=== PATIENT | male | born 1950 | race Caucasian/White ===

== ENCOUNTER 2016-07-10 15:02 | Emergency (ER) | payer MEDICARE ==
[2016-07-10] MEDS ORDERED: AMMONIA AROMATIC IH ONE (15:30)
[2016-07-10] MEDS ORDERED: Sodium Chloride 0.9% 1000 ML 1,000 ML IV SCH (15:30)
--- NOTE | 2016-07-10 15:31 | ERPHSYRPT ---
- History of Present Illness Time Seen by Provider: 07/10/16 15:26 Source: patient Exam Limitations: no limitations Patient Subjective Stated Complaint: bright red rectal bleeding. Triage Nursing Assessment: ambulated to room per self. skin w/d, color normal, resp easy. no active bleeding noted at this time. Physician History: This is a 65-year-old white male he arrives with complaint of bright red blood from his rectum approximately an hour and a half ago he states that he's been having lower abdominal pain for several days she states she's been having progressively redder stools over the past couple days then today when he went to wipe he got gross blood. He does have pain in the lower abdomen he has no vomiting. Patient without chest pain or shortness of breath. Past medical history includes arrhythmia, coronary artery disease, hyperlipidemia, high blood pressure, myocardial infarction, diverticulitis, GERD , chronic low back pain, multiple rib fractures,. Past surgical history includes CABG, internal defibrillator, pacer, appendectomy , hemorrhoidectomy, defibrillator placement and removal.. . Timing/Duration: today, other (progressively redder stools for 2 days blood in stools today) Severity: moderate Modifying Factors: Worsens With: eating, immobilization, medication, movement, rest, acetaminophen, ibuprofen, nothing Associated Symptoms: abdominal pain (pain in the lower abdomen bilaterally), No nausea, No vomiting, No shortness of breath, No heartburn, No diaphoresis, No cough, No chills, No chest pain, No fever, No headaches, No loss of appetite, No malaise, No rash, No syncope, No seizure, No weakness Allergies/Adverse Reactions: codeine Adverse Reaction (Verified 07/10/16 15:16) "I DON'T LIKE IT"-VOMITED morphine Adverse Reaction (Verified 07/10/16 15:16) HIGH TOLERANCE Home Medications: Alprazolam 1 mg PO TID PRN PRN 12/24/14 [History] Famotidine 20 mg [Pepcid 20 MG] 20 mg PO BID 12/24/14 [History] Lisinopril 5 mg [Zestril 5 MG] 5 mg PO DAILY 12/24/14 [History] Tamsulosin HCl 0.4 mg PO DAILY 07/16/15 [History] Piroxicam [Feldene] 10 mg PO BID 09/20/15 [History] Apixaban [Eliquis] 5 mg PO BID 01/21/16 [History] Amiodarone HCl [Pacerone] 400 mg PO DAILY 07/10/16 [History] Hx Tetanus, Diphtheria Vaccination/Date Given: Yes Hx Influenza Vaccination/Date Given: Yes Hx Pneumococcal Vaccination/Date Given: Yes - Review of Systems Constitutional: No Fever, No Chills Eyes: No Symptoms, No Discharge, No Eye Pain Ears, Nose, & Throat: No Symptoms, No Ear Pain, No Ear Discharge, No Hearing Changes Respiratory: No Cough, No Dyspnea Cardiac: No Chest Pain, No Edema, No Syncope Abdominal/Gastrointestinal: Abdominal Pain, Hematochezia, No Nausea, No Vomiting , No Diarrhea Genitourinary Symptoms: No Dysuria Musculoskeletal: No Back Pain, No Neck Pain Skin: No Rash Neurological: No Dizziness, No Focal Weakness, No Sensory Changes Psychological: No Symptoms Endocrine: No Symptoms All Other Systems: Reviewed and Negative - Past Medical History Pertinent Past Medical History: Yes Neurological History: No Pertinent History ENT History: No Pertinent History Cardiac History: Arrhythmia, Coronary Artery Disease, High Cholesterol, Hypertension, Myocardial Infarction ([place]), Other Respiratory History: No Pertinent History, Other Endocrine Medical History: No Pertinent History Musculoskeletal History: Other GI Medical History: Diverticulitis, GERD History: No Pertinent History Psycho-Social History: No Pertinent History Male Reproductive Disorders: No Pertinent History Other Medical History: CHRONIC LOWER BACK PAIN. BROKEN NOSE. fx ribs on TEJ SIDES - Past Surgical History Past Surgical History: Yes Neuro Surgical History: No Pertinent History Cardiac: CABG, Internal Defibrillator, Pacemaker, Other Respiratory: No Pertinent History Gastrointestinal: Appendectomy, Hemorrhoidectomy Genitourinary: No Pertinent History Musculoskeletal: No Pertinent History Male Surgical History: No Pertinent History Other Surgical History: defib placement and removal - Social History Smoking Status: Current every day smoker How long have you smoked: 55 Exposure to second hand smoke: No Drug Use: none Patient Lives Alone: No - Nursing Vital Signs Nursing Vital Signs: Initial Vital Signs Temperature 97.7 F Pulse Rate 82 Respiratory Rate 18 Blood Pressure [Right Arm] 135/78 Pain Intensity 6 - Physical Exam General Appearance: mild distress Eye Exam: PERRL/EOMI, eyes nml inspection Ears, Nose, Throat Exam: normal ENT inspection, TMs normal, pharynx normal, moist mucous membranes Neck Exam: normal inspection, non-tender, supple, full range of motion Respiratory Exam: normal breath sounds, lungs clear, No respiratory distress Cardiovascular Exam: regular rate/rhythm, normal heart sounds, normal peripheral pulses Gastrointestinal/Abdomen Exam: soft, normal bowel sounds, tenderness ( suprapubic tenderness), No pulsatile mass, No rebound Rectal Exam: normal rectal tone, other (gross hematocherzia on rectal examination) Back Exam: normal inspection, normal range of motion, No CVA tenderness, No vertebral tenderness Extremity Exam: normal inspection, normal range of motion, pelvis stable Neurologic Exam: alert, oriented x 3, cooperative, normal mood/affect, nml cerebellar function, nml station & gait, sensation nml, No motor deficits Skin Exam: normal color, warm, dry, No rash Lymphatic Exam: No adenopathy SpO2 Interpretation: normal (99%) SpO2: 99 - Course Nursing assessment & vital signs reviewed: Yes Ordered Tests: Active Orders 24 hr Category Date Time Status IV Insertion STAT Care 07/10/16 15:25 Active IV Insertion-2nd Peripheral STAT Care 07/10/16 15:25 Active CBC W DIFF Stat Lab 07/10/16 15:34 Completed CMP Stat Lab 07/10/16 15:34 Completed Manual Differential NC Stat Lab 07/10/16 15:34 Completed Occult Blood,Stool Other Stat Lab 07/10/16 15:34 Completed PROTIME WITH INR Stat Lab 07/10/16 15:34 Completed PTT Stat Lab 07/10/16 15:34 Completed Medication Summary Generic Name Dose Route Start Last Admin Trade Name Freq PRN Reason Stop Dose Admin Sodium Chloride 1,000 mls @ 100 mls/hr 07/10/16 15:30 07/10/16 15:36 Sodium Chloride 0.9% 1000 Ml IV 08/09/16 15:29 100 mls/hr .Q10H BELL Administration Levofloxacin/Dextrose 100 mls @ 100 mls/hr 07/10/16 16:52 07/10/16 17:13 Levofloxacin 500mg/100ml D5w IV 07/10/16 17:51 100 mls/hr STAT ONE Administration Discontinued Medications Generic Name Dose Route Start Last Admin Trade Name Freq PRN Reason Stop Dose Admin Ammonia (Aromatic Spirit) Confirm 07/10/16 15:30 Ammonia Aromatic Administered 07/10/16 15:31 Dose 1 amp IH .STK-MED ONE Sodium Chloride Confirm 07/10/16 15:34 Sodium Chloride 0.9% 1000 Ml Administered 07/10/16 15:35 Dose 1,000 mls @ ud .ROUTE .STK-MED ONE Levofloxacin/Dextrose Confirm 07/10/16 17:10 Levofloxacin 500mg/100ml D5w Administered 07/10/16 17:11 Dose 100 mls @ ud IV .STK-MED ONE Morphine Sulfate 8 mg 07/10/16 16:55 07/10/16 17:12 Morphine Sulfate 10 Mg/Ml IV 07/10/16 16:56 8 mg STAT ONE Administration Morphine Sulfate Confirm 07/10/16 17:10 Morphine Sulfate 10 Mg/Ml Administered 07/10/16 17:11 Dose 10 mg .ROUTE .STK-MED ONE Lab/Rad Data: Laboratory Result Diagrams 07/10/16 15:34 07/10/16 15:34 Laboratory Results 07/10/16 07/10/16 07/10/16 Range/Units 15:34 15:34 15:34 WBC (4.0-10.5) K/mm3 RBC (4.1-5.6) M/mm3 Hgb (12.5-18.0) gm/dl Hct (42-50) % MCV (78-100) fl MCH (26-32) pg MCHC (32-36) g/dl RDW (11.5-14.0) % Plt Count (150-450) K/mm3 MPV (6-9.5) fl Segmented Neutrophils (36.-66.) % Lymphocytes (Manual) (24-44) % Monocytes (Manual) (0.0-12.0) % Eosinophils (Manual) (0.00-3.0) % Differential Comment Platelet Estimate (NORMAL) INR 1.18 (0.8-3.0) PTT 38.5 H (24.1-36.1) SECONDS Sodium (136-145) mEq/L Potassium (3.5-5.1) mEq/L Chloride (98-107) mEq/L Carbon Dioxide (21-32) mEq/L Anion Gap (5-15) MEQ/L BUN (9-20) mg/dL Creatinine (0.55-1.30) mg/dl Estimated GFR ML/MIN Glucose (70-110) MG/DL Calcium (8.5-10.1) mg/dL Total Bilirubin (0.2-1.0) mg/dL AST (15-37) U/L ALT (12-78) U/L Alkaline Phosphatase (46-116) U/L Serum Total Protein (6.4-8.2) gm/dL Albumin (3.4-5.0) g/dL Stool Occult Blood POSITIVE (Negative) ABO Group A Rh Factor POSITIVE Antibody Screen NEGATIVE (NEGATIVE) 07/10/16 07/10/16 Range/Units 15:34 15:34 WBC 13.8 H (4.0-10.5) K/mm3 RBC 5.32 (4.1-5.6) M/mm3 Hgb 14.9 (12.5-18.0) gm/dl Hct 45.9 (42-50) % MCV 86.3 (78-100) fl MCH 28.0 (26-32) pg MCHC 32.5 (32-36) g/dl RDW 17.2 H (11.5-14.0) % Plt Count 216 (150-450) K/mm3 MPV 10.1 H (6-9.5) fl Segmented Neutrophils 44 (36.-66.) % Lymphocytes (Manual) 45 H (24-44) % Monocytes (Manual) 9 (0.0-12.0) % Eosinophils (Manual) 2 (0.00-3.0) % Differential Comment NORMAL Platelet Estimate NORMAL (NORMAL) INR (0.8-3.0) PTT (24.1-36.1) SECONDS Sodium 135 L (136-145) mEq/L Potassium 4.1 (3.5-5.1) mEq/L Chloride 100 (98-107) mEq/L Carbon Dioxide 23.0 (21-32) mEq/L Anion Gap 16.2 H (5-15) MEQ/L BUN 21 H (9-20) mg/dL Creatinine 1.08 (0.55-1.30) mg/dl Estimated GFR > 60 ML/MIN Glucose 98 (70-110) MG/DL Calcium 9.0 (8.5-10.1) mg/dL Total Bilirubin 0.5 (0.2-1.0) mg/dL AST 22 (15-37) U/L ALT 19 (12-78) U/L Alkaline Phosphatase 52 (46-116) U/L Serum Total Protein 7.4 (6.4-8.2) gm/dL Albumin 3.7 (3.4-5.0) g/dL Stool Occult Blood (Negative) ABO Group Rh Factor Antibody Screen (NEGATIVE) - Progress Progress: improved Progress Note: 07/10/16 16:54 Patient's hemoglobin is stable he does have a mild increased white count. Case is discussed with Dr. Goddard. He requests that the patient be placed on antibioticsn, and that he has a repeat CBC in the morning as an outpatient which is to be called to Dr. Goddard. Dr. Goddard does not want to admit this patient at this time. He would like to see the patient on Tuesday. Patient is asking for a pain shot. Patient has morphine listed as an allergy however the patient states that he is not allergic to morphine or codeine he doesn't feel like it doesn't whole lot but he is not allergic to it and he has never had an allergic reaction to it. Will give patient morphine IV will give patient Levaquin IV Will plan to release patient as requested by Dr. Goddard 07/10/16 17:00 Had considered sending patient home on Levaquin however Will place patient on Augmentin 500 mg orally 3 times a day for 10 days. - Departure Time of Disposition: 17:27 Departure Disposition: Home Clinical Impression: Rectal bleeding Abdominal pain Qualifiers: Abdominal location: lower abdomen, unspecified Qualified Code(s): R10.30 - Lower abdominal pain, unspecified Diverticulitis Qualifiers: Diverticulitis site: unspecified part of intestinal tract Diverticulitis bleeding: with bleeding Diverticulitis complication: without perforation or abscess Qualified Code(s): K57.93 - Diverticulitis of intestine, part unspecified, without perforation or abscess with bleeding Condition: Fair Critical Care Time: No Referrals: SHIMON GODDARD MD [Primary Care Provider] - Additional Instructions: Return home. Clear fluids. [id number] mg orally 3 times a day for 10 days CBC tomorrow morning results to Dr. Goddard. Follow-up with Dr. Goddard Tuesday. Return for acute distress or for severe symptoms. Prescriptions: Amox Tr/Potass Clav. 500 mg [Augmentin 500-125 Tablet] 500 mg PO TID #0 tablet
[2016-07-10] MEDS ORDERED: Sodium Chloride 0.9% 1000 ML 1,000 ML ONE (15:34)
[2016-07-10 15:59] LABS: Mean Cell Volume 86.3 fl (78-100); Mean Platelet Volume 10.1 fl (6-9.5); Platelet Count 216 K/mm3 (150-450); Red Blood Count 5.32 M/mm3 (4.1-5.6); Red Cell Distribution Width 17.2 % (11.5-14.0); White Blood Count 13.8 K/mm3 (4.0-10.5)
[2016-07-10 16:09] LABS: ALBUMIN 3.7 g/dL (3.4-5.0); ALKALINE PHOSPHATASE 52 U/L (46-116); ANION GAP 16.2 MEQ/L (5-15); BILIRUBIN,TOTAL 0.5 mg/dL (0.2-1.0); BLOOD UREA NITROGEN 21 mg/dL (9-20); CHLORIDE 100 mEq/L (98-107); Glucose 98 MG/DL (70-110); Potassium 4.1 mEq/L (3.5-5.1); SGOT/AST 22 U/L (15-37); SGPT/ALT 19 U/L (12-78); SODIUM 135 mEq/L (136-145); Total Protein 7.4 gm/dL (6.4-8.2)
[2016-07-10 16:11] LABS: INR 1.18 (0.8-3.0); PROTIME 13.1 SECONDS (8.83-12.87)
[2016-07-10 16:14] LABS: PTT 38.5 SECONDS (24.1-36.1)
[2016-07-10 16:28] LABS: Eosinophil 2 % (0.00-3.0); Platelet Estimate NORMAL (NORMAL); Total Cells Counted 100
[2016-07-10] MEDS ORDERED: Levofloxacin 500MG/100ML D5W 100 ML IV ONE ×2 (16:52→17:10)
[2016-07-10] MEDS ORDERED: MORPHINE SULFATE 10 MG/ML IV ONE (16:55)
[2016-07-10] MEDS ORDERED: MORPHINE SULFATE 10 MG/ML ONE (17:10)
[2016-07-10 18:19] VITALS: BP 138/78; PULSE 78; O2SAT 98
== END 2016-07-10 18:30 | disposition home or self-care (01) ==
LOC: ED 15:02
DX: R10.30 Lower abdominal pain, unspecified (principal); K57.93 Diverticulitis of intestine, part unspecified, without perforation or abscess with bleeding; K62.5 Hemorrhage of anus and rectum; I10 Essential (primary) hypertension; E78.5 Hyperlipidemia, unspecified; I25.10 Atherosclerotic heart disease of native coronary artery without angina pectoris; I25.2 Old myocardial infarction; Z95.1 Presence of aortocoronary bypass graft; Z95.810 Presence of automatic (implantable) cardiac defibrillator; Z95.0 Presence of cardiac pacemaker; Z79.899 Other long term (current) drug therapy
CPT/HCPCS: 36000; 36415; 80053; 82272; 85025; 85610; 85730; 86850; 86900; 86901; 96360; 96361; 96365; 96374; 99283; 99284; J1956; J2270

== ENCOUNTER 2016-08-30 12:29 | Emergency (ER) | payer MEDICARE ==
--- NOTE | 2016-08-30 12:46 | ERPHSYRPT ---
- History of Present Illness Time Seen by Provider: 08/30/16 12:40 Source: patient Exam Limitations: no limitations Patient Subjective Stated Complaint: pt arrived per pov for pacemaker/defib making a loud noise, called and told to come in. happened about an hour ago. had pacemaker/defib tested this morning and states it was fine, pt states he does not feel well, pain to left jaw and nausea Triage Nursing Assessment: pt alert, resp easy,skin w/d,pink, resp easy, pt walked in to er, no edema noted, chest clear, pt has pacemaker/defib in right side of chest. Physician History: The patient is a 65-year-old male who has a cardiac pacemaker/defibrillator comes in complaining that about one hour ago there was a loud siren type noise the last 15 seconds coming from his defibrillator. Pacer placed 09/20/14. He called the child specialist and was told to come to the ER. He says he doesn't feel well but denies chest pain. He has pain in his left jaw. He said his stomach doesn't feel well. He is not short of breath. Earlier this morning he interrogated his defibrillator as usual and everything was fine. His past medical history is significant for [place], hypertension, coronary artery disease, CABG, and diverticulitis. Timing/Duration: hour(s) (1) Activities at Onset: none Quality: other (alarm from defib) Chest Pain Radiation: jaw Severity of Pain-Max: moderate Severity of Pain-Current: moderate Modifying Factors: Improves With: nothing Nitro Today/Relief: no nitro taken today Aspirin Treatment Today: no aspirin today Associated Symptoms: nausea Prior Chest Pain/Cardiac Workup: cardiac cath Allergies/Adverse Reactions: codeine Adverse Reaction (Verified 08/30/16 12:39) "I DON'T LIKE IT"-VOMITED morphine Adverse Reaction (Verified 08/30/16 12:39) HIGH TOLERANCE Home Medications: Alprazolam 1 mg PO TID PRN PRN 12/24/14 [History] Famotidine 20 mg [Pepcid 20 MG] 20 mg PO BID 12/24/14 [History] Lisinopril 5 mg [Zestril 5 MG] 5 mg PO DAILY 12/24/14 [History] Tamsulosin HCl 0.4 mg PO DAILY 07/16/15 [History] Piroxicam [Feldene] 10 mg PO BID 09/20/15 [History] Apixaban [Eliquis] 5 mg PO BID 01/21/16 [History] Amiodarone HCl [Pacerone] 400 mg PO DAILY 07/10/16 [History] Hx Tetanus, Diphtheria Vaccination/Date Given: Yes Hx Influenza Vaccination/Date Given: Yes Hx Pneumococcal Vaccination/Date Given: Yes - Review of Systems Constitutional: No Fever, No Chills Eyes: No Symptoms Ears, Nose, & Throat: No Symptoms Respiratory: No Cough, No Dyspnea Cardiac: Other (alarm from defib) Abdominal/Gastrointestinal: Nausea Genitourinary Symptoms: No Dysuria Musculoskeletal: No Symptoms Skin: No Rash Neurological: No Dizziness, No Focal Weakness, No Sensory Changes Psychological: No Symptoms Endocrine: No Symptoms Hematologic/Lymphatic: No Symptoms Immunological/Allergic: No Symptoms All Other Systems: Reviewed and Negative - Past Medical History Pertinent Past Medical History: Yes Neurological History: No Pertinent History ENT History: No Pertinent History Cardiac History: Arrhythmia, Coronary Artery Disease, High Cholesterol, Hypertension, Myocardial Infarction ([place]), Other Respiratory History: No Pertinent History, Other Endocrine Medical History: No Pertinent History Musculoskeletal History: Other GI Medical History: Diverticulitis, GERD History: No Pertinent History Psycho-Social History: No Pertinent History Male Reproductive Disorders: No Pertinent History Other Medical History: CHRONIC LOWER BACK PAIN. BROKEN NOSE. fx ribs on TEJ SIDES - Past Surgical History Past Surgical History: Yes Neuro Surgical History: No Pertinent History Cardiac: CABG, Internal Defibrillator, Pacemaker, Other Respiratory: No Pertinent History Gastrointestinal: Appendectomy, Hemorrhoidectomy Genitourinary: No Pertinent History Musculoskeletal: No Pertinent History Male Surgical History: No Pertinent History Other Surgical History: defib placement and removal - Social History Smoking Status: Current every day smoker How long have you smoked: 55 Exposure to second hand smoke: Yes Drug Use: none Patient Lives Alone: No - Nursing Vital Signs Temperature: 97.4 F Temperature Source: Oral Pulse Rate: 79 Respiratory Rate: 18 Pain Intensity: 5 - Physical Exam General Appearance: no apparent distress, alert Eye Exam: PERRL/EOMI, eyes nml inspection Ears, Nose, Throat Exam: normal ENT inspection, moist mucous membranes Neck Exam: normal inspection, non-tender, supple Respiratory Exam: normal breath sounds, lungs clear, No respiratory distress Cardiovascular Exam: regular rate/rhythm, normal heart sounds, No edema Gastrointestinal/Abdomen Exam: soft, No tenderness, No mass Rectal Exam: not done Back Exam: normal inspection, No CVA tenderness, No vertebral tenderness Extremity Exam: normal inspection, normal range of motion Neurologic Exam: alert, oriented x 3, cooperative, normal mood/affect, nml cerebellar function, sensation nml, No motor deficits Skin Exam: normal color, warm, dry Lymphatic Exam: No adenopathy SpO2 Interpretation: normal SpO2: 96 Oxygen Delivery: Room Air - Course EKG Interpreted by Me: RATE, Other (paced rhythm, no change compared to EKG 11/10.) - Radiology Exams Chest X-ray Interpretation: Teleradiologist Report, Negative (per Dr Short) Ordered Tests: Active Orders 24 hr Category Date Time Status EKG-ER Only STAT Care 08/30/16 12:55 Active IV Insertion STAT Care 08/30/16 12:55 Active CHEST 2 VIEWS (PA AND LAT) Stat Exams 08/30/16 12:56 Completed CBC W DIFF Stat Lab 08/30/16 13:00 Received CMP Stat Lab 08/30/16 13:00 Completed TROPONIN Stat Lab 08/30/16 13:00 Completed Lab/Rad Data: Laboratory Result Diagrams 08/30/16 13:00 Laboratory Results 08/30/16 Range/Units 13:00 Sodium 137 (136-145) mEq/L Potassium 4.4 (3.5-5.1) mEq/L Chloride 102 (98-107) mEq/L Carbon Dioxide 22.6 (21-32) mEq/L Anion Gap 16.4 H (5-15) MEQ/L BUN 21 H (9-20) mg/dL Creatinine 1.16 (0.55-1.30) mg/dl Estimated GFR > 60 ML/MIN Glucose 117 H (70-110) MG/DL Calcium 8.6 (8.5-10.1) mg/dL Total Bilirubin 0.5 (0.2-1.0) mg/dL AST 27 (15-37) U/L ALT 26 (12-78) U/L Alkaline Phosphatase 55 (46-116) U/L Troponin I 0.021 (0.000-0.056) ng/ml Serum Total Protein 7.5 (6.4-8.2) gm/dL Albumin 3.5 (3.4-5.0) g/dL - Progress Air Movement: good Progress Note: 08/30/16 13:56 We contacted [employer] concerning the pacemaker function. We were advised to hold a magnet over it and listened to the audible sound. The sound was a constant beep which is consistent with a functioning pacemaker. The company district representative also suggested that the pacemaker was interrogated accidentally by the patient when he was working in his garage by possibly getting close to a magnet. The company also sent us the information from the recent interrogation of the pacemaker. As of midnight on 08/30, there were 3 episodes of VT that were terminated with pacing and no shock. These episodes are on 08/26, 08/27, and . We were advised to contact the patient's bioinformatics associate to relay the information about the interrogation. 08/30/16 14:02 Blood Culture(s) Obtained: No Antibiotics given: No Counseled pt/family regarding: lab results, diagnosis, rad results - Departure Time of Disposition: 14:03 Departure Disposition: Home Clinical Impression: Cardiac pacemaker Condition: Stable Critical Care Time: No Additional Instructions: After consultation with the maker of your pacemaker, you're pacemaker is functioning normally at this time. Please follow-up with your bioinformatics associate to discuss the recent interrogation of the events recorded on your pacemaker.
[2016-08-30 13:28] LABS: ALBUMIN 3.5 g/dL (3.4-5.0); ALKALINE PHOSPHATASE 55 U/L (46-116); ANION GAP 16.4 MEQ/L (5-15); BILIRUBIN,TOTAL 0.5 mg/dL (0.2-1.0); BLOOD UREA NITROGEN 21 mg/dL (9-20); CHLORIDE 102 mEq/L (98-107); Carbon Dioxide 22.6 mEq/L (21-32); Glucose 117 MG/DL (70-110); Potassium 4.4 mEq/L (3.5-5.1); SGOT/AST 27 U/L (15-37); SGPT/ALT 26 U/L (12-78); SODIUM 137 mEq/L (136-145); TROPONIN 0.021 ng/ml (0.000-0.056); Total Protein 7.5 gm/dL (6.4-8.2)
--- NOTE | 2016-08-30 13:33 | XRAY ---
Indication: Pacemaker malfunction. Comparison: November 11, 2015. PA/lateral chest again hyperinflated and clear. Heart is not enlarged and again demonstrate previous CABG surgery with a right-sided pacemaker and leads. Bony thorax intact again with mild osteopenia and degenerative changes. Impression: Stable nonacute hyperinflated chest with chronic features.
[2016-08-30 13:40] LABS: Mean Corpuscular Hemoglobin 27.9 pg (26-32); Mean Platelet Volume 9.9 fl (6-9.5); Platelet Count 187 K/mm3 (150-450); Red Blood Count 5.23 M/mm3 (4.1-5.6); Red Cell Distribution Width 16.6 % (11.5-14.0); White Blood Count 13.3 K/mm3 (4.0-10.5)
[2016-08-30 14:21] VITALS: BP 137/74; PULSE 72; O2SAT 97
[2016-08-30 15:22] LABS: ATYPICAL LYMPHS 1 %; Eosinophil 2 % (0.00-3.0); Total Cells Counted 100
[2016-08-30 15:24] LABS: Platelet Estimate NORMAL (NORMAL)
[2016-08-30 15:29] LABS: ANISOCYTOSIS 1+
== END 2016-08-30 14:25 | disposition home or self-care (01) ==
LOC: ED 12:29
DX: T82.897A Other specified complication of cardiac prosthetic devices, implants and grafts, initial encounter (principal); R68.84 Jaw pain; R11.0 Nausea; I25.2 Old myocardial infarction; I25.10 Atherosclerotic heart disease of native coronary artery without angina pectoris; Z95.1 Presence of aortocoronary bypass graft; I10 Essential (primary) hypertension; K57.92 Diverticulitis of intestine, part unspecified, without perforation or abscess without bleeding; Z79.899 Other long term (current) drug therapy
CPT/HCPCS: 36000; 36415; 71020; 80053; 84484; 85025; 93005; 99284

== ENCOUNTER 2017-02-26 14:41 | Emergency (ER) | payer MEDICARE ==
[2017-02-26] MEDS ORDERED: BABY ASPIRIN 81 MG CHEW PO ONE (14:58)
[2017-02-26] MEDS ORDERED: Nitrostat 0.4 MG (ED) SL ONE ×2 (14:58→15:04)
[2017-02-26] MEDS ORDERED: Zofran 4 MG/2 ML VIAL IV ONE (14:58)
--- NOTE | 2017-02-26 14:58 | ERPHSYRPT ---
- History of Present Illness Time Seen by Provider: 02/26/17 14:52 Historian: patient Exam Limitations: no limitations Patient Subjective Stated Complaint: PT REPORTS HE WAS OUT PICKING APPLES-CAME INTO TOWN ET BEGAN HAVING SHARP CHEST PAIN WITH NUMBNESS TO LEFT HAND-REPORTS INCREASED [id number] N/V Triage Nursing Assessment: PT FLUSHED WARM ET DRY UPON ARRIVAL-PT SPEAKING IN COMPLETE SENTENCES-LUNGS DIMINISHED BILATERALLY-NO RETRACTIONS NOTED-RIGHT RADIAL PULSE REGULAR Physician History: The patient is a 66-year-old male complaining of a sudden onset of left-sided chest pressure with radiation down the left arm that began just prior to arrival. He had been out picking up apples but at the time was sitting down resting when the pain started. He is also slightly short of breath. He denies nausea or vomiting. He has a significant cardiac history which includes 3 vessel CABG, VT, coronary artery disease, and cardiac pacemaker placement. His other past medical history is significant for hypertension, diverticulitis, PE, and BPH. Timing/Duration: today, sudden Activities at Onset: rest Quality: pressure Location: substernal Chest Pain Radiation: arm Severity of Pain-Max: moderate Severity of Pain-Current: moderate Modifying Factors: Improves With: nothing Associated Symptoms: shortness of breath, No nausea, No vomiting, No dizziness Prior Chest Pain/Cardiac Workup: angina, cardiac cath, heart attack, pulmonary embolism Nitro Today/Relief: no nitro taken today Aspirin Treatment Today: no aspirin today Allergies/Adverse Reactions: codeine Adverse Reaction (Verified 02/26/17 14:49) "I DON'T LIKE IT"-VOMITED morphine Adverse Reaction (Verified 02/26/17 14:49) HIGH TOLERANCE Home Medications: Alprazolam 1 mg PO TID PRN PRN 12/24/14 [History] Famotidine 20 mg [Pepcid 20 MG] 20 mg PO BID 12/24/14 [History] Lisinopril 5 mg [Zestril 5 MG] 5 mg PO DAILY 12/24/14 [History] Tamsulosin HCl 0.4 mg PO DAILY 07/16/15 [History] Piroxicam [Feldene] 10 mg PO BID 09/20/15 [History] Apixaban [Eliquis] 5 mg PO BID 01/21/16 [History] Amiodarone HCl [Pacerone] 400 mg PO DAILY 07/10/16 [History] Hx Tetanus, Diphtheria Vaccination/Date Given: Yes Hx Influenza Vaccination/Date Given: Yes Hx Pneumococcal Vaccination/Date Given: Yes Immunizations Up to Date: Yes - Review of Systems Constitutional: No Fever, No Chills Eyes: No Symptoms Ears, Nose, & Throat: No Symptoms Respiratory: Dyspnea Cardiac: Chest Pain Abdominal/Gastrointestinal: No Abdominal Pain, No Nausea, No Vomiting, No Diarrhea Genitourinary Symptoms: No Dysuria Musculoskeletal: No Back Pain, No Neck Pain Skin: No Rash Neurological: No Dizziness, No Focal Weakness, No Sensory Changes Psychological: No Symptoms Endocrine: No Symptoms Hematologic/Lymphatic: No Symptoms Immunological/Allergic: No Symptoms All Other Systems: Reviewed and Negative - Past Medical History Pertinent Past Medical History: Yes Neurological History: No Pertinent History ENT History: No Pertinent History Cardiac History: Arrhythmia, Coronary Artery Disease, High Cholesterol, Hypertension, Myocardial Infarction (VT), Other Respiratory History: No Pertinent History, Other Endocrine Medical History: No Pertinent History Musculoskeletal History: Other GI Medical History: Diverticulitis, GERD History: No Pertinent History Psycho-Social History: No Pertinent History Male Reproductive Disorders: No Pertinent History Other Medical History: CHRONIC LOWER BACK PAIN. BROKEN NOSE. fx ribs on TEJ SIDES - Past Surgical History Past Surgical History: Yes Neuro Surgical History: No Pertinent History Cardiac: CABG, Internal Defibrillator, Pacemaker, Other Respiratory: No Pertinent History Gastrointestinal: Appendectomy, Hemorrhoidectomy Genitourinary: No Pertinent History Musculoskeletal: No Pertinent History Male Surgical History: No Pertinent History Other Surgical History: defib placement and removal - Social History Smoking Status: Current every day smoker How long have you smoked: 55 Exposure to second hand smoke: Yes Drug Use: none Patient Lives Alone: No - Nursing Vital Signs Nursing Vital Signs: Initial Vital Signs Pulse Rate 80 02/26/17 14:44 Respiratory Rate 20 02/26/17 14:44 Blood Pressure 122/70 02/26/17 14:44 O2 Sat by Pulse Oximetry 96 02/26/17 14:44 Pain Scale Pain Intensity 4 - Physical Exam General Appearance: mild distress Eye Exam: PERRL/EOMI, eyes nml inspection Ears, Nose, Throat Exam: normal ENT inspection, moist mucous membranes Neck Exam: normal inspection, non-tender, supple, full range of motion Respiratory Exam: wheezing Cardiovascular Exam: regular rate/rhythm, normal heart sounds Gastrointestinal/Abdomen Exam: soft, No tenderness, No mass Rectal Exam: not done Back Exam: normal inspection, No CVA tenderness, No vertebral tenderness Extremity Exam: normal inspection, normal range of motion Neurologic Exam: alert, oriented x 3, cooperative, normal mood/affect, sensation nml, No motor deficits Skin Exam: normal color, warm, dry SpO2 Interpretation: normal SpO2: 96 Oxygen Delivery: Room Air - Course EKG Interpreted by Me: RATE, Other (paced rhythm) - Radiology Exams Chest X-ray Interpretation: Interpreted by me, Other (increased pulmonary vascular congestion and cardiomegaly comp CXR 08/30/16.) Ordered Tests: Active Orders 24 hr Category Date Time Status Military Equipment Specialist STAT Care 02/26/17 14:56 Active EKG-ER Only STAT Care 02/26/17 14:56 Active IV Insertion STAT Care 02/26/17 14:55 Active Oxygen-ED Only NASAL CANNULA 2 lpm Care 02/26/17 14:58 Active Pulse Oximetry (ED) STAT Care 02/26/17 14:58 Active CHEST 2 VIEWS (PA AND LAT) Stat Exams 02/26/17 15:00 Taken CBC W DIFF Stat Lab 02/26/17 14:55 Completed CMP Stat Lab 02/26/17 14:55 Completed Manual Differential NC Stat Lab 02/26/17 14:55 Completed NT PRO BNP Stat Lab 02/26/17 14:55 Completed PROTIME WITH INR Stat Lab 02/26/17 14:55 Completed TROPONIN Q3H Lab 02/26/17 14:55 Completed TROPONIN Q3H Lab 02/26/17 18:00 Ordered TROPONIN Q3H Lab 02/26/17 21:00 Ordered TROPONIN Q3H Lab 02/27/17 00:00 Ordered TROPONIN Q3H Lab 02/27/17 03:00 Ordered Medication Summary Discontinued Medications Generic Name Dose Route Start Last Admin Trade Name Freq PRN Reason Stop Dose Admin Aspirin 324 mg 02/26/17 14:58 02/26/17 15:09 Baby Aspirin 81 Mg Chew PO 02/26/17 14:59 324 mg STAT ONE Administration Aspirin Confirm 02/26/17 15:04 Baby Aspirin 81 Mg Chew Administered 02/26/17 15:05 Dose 324 mg .ROUTE .STK-MED ONE Nitroglycerin 0.4 mg 02/26/17 14:58 02/26/17 15:05 Nitrostat 0.4 Mg (Ed) SL 02/26/17 14:59 0.4 mg STAT ONE Administration Nitroglycerin Confirm 02/26/17 15:04 Nitrostat 0.4 Mg (Ed) Administered 02/26/17 15:05 Dose 0.4 mg SL .STK-MED ONE Ondansetron HCl 4 mg 02/26/17 14:58 02/26/17 15:05 Zofran 4 Mg/2 Ml Vial IV 02/26/17 14:59 Not Given STAT ONE Ondansetron HCl Confirm 02/26/17 15:04 Zofran 4 Mg/2 Ml Vial Administered 02/26/17 15:05 Dose 4 mg .ROUTE .STK-MED ONE Lab/Rad Data: Laboratory Result Diagrams 02/26/17 14:55 02/26/17 14:55 Laboratory Results 02/26/17 02/26/17 02/26/17 Range/Units 14:55 14:55 14:55 WBC (4.0-10.5) K/mm3 RBC (4.1-5.6) M/mm3 Hgb (12.5-18.0) gm/dl Hct (42-50) % MCV (78-100) fl MCH (26-32) pg MCHC (32-36) g/dl RDW (11.5-14.0) % Plt Count (150-450) K/mm3 MPV (6-9.5) fl Segmented Neutrophils (36.-66.) % Lymphocytes (Manual) (24-44) % Monocytes (Manual) (0.0-12.0) % Eosinophils (Manual) (0.00-3.0) % Basophils (Manual) (0.0-1.0) % Nucleated RBCs % Differential Comment Platelet Estimate (NORMAL) INR 1.35 (0.8-3.0) Sodium 135 L (136-145) mEq/L Potassium 4.2 (3.5-5.1) mEq/L Chloride 101 (98-107) mEq/L Carbon Dioxide 24.2 (21-32) mEq/L Anion Gap 14.2 (5-15) MEQ/L BUN 17 (9-20) mg/dL Creatinine 1.12 (0.55-1.30) mg/dl Estimated GFR > 60 ML/MIN Glucose 148 H (70-110) MG/DL Calcium 8.6 (8.5-10.1) mg/dL Total Bilirubin 0.50 (0.2-1.0) mg/dL AST 21 (15-37) U/L ALT 23 (12-78) U/L Alkaline Phosphatase 54 (46-116) U/L Troponin I < 0.017 (0.000-0.056) ng/ml NT-Pro-B Natriuret Pep 1349 H (0-125) pg/ml Serum Total Protein 6.8 (6.4-8.2) gm/dL Albumin 3.3 L (3.4-5.0) g/dL 02/26/17 Range/Units 14:55 WBC 18.0 H (4.0-10.5) K/mm3 RBC 4.99 (4.1-5.6) M/mm3 Hgb 13.0 (12.5-18.0) gm/dl Hct 41.4 L (42-50) % MCV 83.0 (78-100) fl MCH 26.1 (26-32) pg MCHC 31.4 L (32-36) g/dl RDW 18.1 H (11.5-14.0) % Plt Count 194 (150-450) K/mm3 MPV 9.8 H (6-9.5) fl Segmented Neutrophils 33 L (36.-66.) % Lymphocytes (Manual) 57 H (24-44) % Monocytes (Manual) 6 (0.0-12.0) % Eosinophils (Manual) 3 (0.00-3.0) % Basophils (Manual) 1 (0.0-1.0) % Nucleated RBCs % Differential Comment NORMAL Platelet Estimate NORMAL (NORMAL) INR (0.8-3.0) Sodium (136-145) mEq/L Potassium (3.5-5.1) mEq/L Chloride (98-107) mEq/L Carbon Dioxide (21-32) mEq/L Anion Gap (5-15) MEQ/L BUN (9-20) mg/dL Creatinine (0.55-1.30) mg/dl Estimated GFR ML/MIN Glucose (70-110) MG/DL Calcium (8.5-10.1) mg/dL Total Bilirubin (0.2-1.0) mg/dL AST (15-37) U/L ALT (12-78) U/L Alkaline Phosphatase (46-116) U/L Troponin I (0.000-0.056) ng/ml NT-Pro-B Natriuret Pep (0-125) pg/ml Serum Total Protein (6.4-8.2) gm/dL Albumin (3.4-5.0) g/dL - Progress Progress: unchanged Air Movement: good Blood Culture(s) Obtained: No Antibiotics given: No Discussed with DrJeanette: Other (Mindi) Counseled pt/family regarding: lab results, diagnosis, rad results - Departure Time of Disposition: 15:20 Departure Disposition: Transfer (Transfer to [facility] per Dr Obregon.) Clinical Impression: Chest pain Condition: Stable Critical Care Time: No Referrals: SHIMON GODDARD MD [Primary Care Provider] -
[2017-02-26] MEDS ORDERED: Zofran 4 MG/2 ML VIAL ONE (15:04)
[2017-02-26] MEDS ORDERED: BABY ASPIRIN 81 MG CHEW ONE (15:04)
[2017-02-26 15:07] LABS: Mean Corpuscular Hemoglobin 26.1 pg (26-32); Mean Platelet Volume 9.8 fl (6-9.5); Platelet Count 194 K/mm3 (150-450); Red Blood Count 4.99 M/mm3 (4.1-5.6); Red Cell Distribution Width 18.1 % (11.5-14.0)
[2017-02-26 15:19] LABS: INR 1.35 (0.8-3.0); PROTIME 15.1 SECONDS (8.83-12.87)
[2017-02-26 15:32] LABS: ALBUMIN 3.3 g/dL (3.4-5.0); ALKALINE PHOSPHATASE 54 U/L (46-116); ANION GAP 14.2 MEQ/L (5-15); BLOOD UREA NITROGEN 17 mg/dL (9-20); CHLORIDE 101 mEq/L (98-107); Carbon Dioxide 24.2 mEq/L (21-32); Glucose 148 MG/DL (70-110); Potassium 4.2 mEq/L (3.5-5.1); SGOT/AST 21 U/L (15-37); SGPT/ALT 23 U/L (12-78); SODIUM 135 mEq/L (136-145); Total Protein 6.8 gm/dL (6.4-8.2)
[2017-02-26 15:41] LABS: Basophil 1 % (0.0-1.0); Eosinophil 3 % (0.00-3.0); Total Cells Counted 100
[2017-02-26 15:42] LABS: Platelet Estimate NORMAL (NORMAL)
[2017-02-26 15:54] VITALS: BP 101/62; PULSE 70
[2017-02-26 16:24] VITALS: O2SAT 96
--- NOTE | 2017-02-26 21:25 | XRAY ---
Indication: Chest pain. Comparison: August 30, 2016. Portable apical lordotic chest again demonstrates chronic lung markings, calcified granulomas, CABG surgery, and right-sided pacemaker/leads. No focal infiltrate, consolidation, or large effusion. Bony thorax intact again with osteopenia and degenerative changes. Impression: Nonacute chest with chronic features.
== END 2017-02-26 17:24 | disposition short-term general hospital (02) ==
LOC: ED 14:41
DX: R07.89 Other chest pain (principal); Z95.1 Presence of aortocoronary bypass graft; I25.2 Old myocardial infarction; I10 Essential (primary) hypertension; K57.92 Diverticulitis of intestine, part unspecified, without perforation or abscess without bleeding; N40.0 Benign prostatic hyperplasia without lower urinary tract symptoms; Z95.0 Presence of cardiac pacemaker; I25.10 Atherosclerotic heart disease of native coronary artery without angina pectoris; Z79.899 Other long term (current) drug therapy
CPT/HCPCS: 36000; 36415; 71020; 80053; 83880; 84484; 85025; 85610; 93005; 93041; 99285; J2405; A9270-GY

== ENCOUNTER 2017-06-29 01:06 | Observation (INO) | payer MEDICARE ==
[2017-06-29] MEDS ORDERED: BABY ASPIRIN 81 MG CHEW PO ONE (01:25)
[2017-06-29] MEDS ORDERED: Lasix 40 MG/4 ML IV ONE (01:25)
[2017-06-29] MEDS ORDERED: Sodium Chloride 0.9% 1000 ML 1,000 ML IV SCH ×2 (01:30→04:36)
[2017-06-29] MEDS ORDERED: Lasix 40 MG/4 ML ONE (01:31)
[2017-06-29] MEDS ORDERED: BABY ASPIRIN 81 MG CHEW ONE (01:31)
[2017-06-29] MEDS ORDERED: Sodium Chloride 0.9% 1000 ML 1,000 ML ONE (01:31)
--- NOTE | 2017-06-29 01:33 | ERPHSYRPT ---
- History of Present Illness Time Seen by Provider: 06/29/17 01:15 Source: patient Exam Limitations: no limitations Patient Subjective Stated Complaint: c/o having increased swelling recently, AICD went off prior to arrival Triage Nursing Assessment: AAO X 4, pt states AICD went off prior to arrival, has been having increased swelling Physician History: FOR THE PAST 1.5 DAYS PT HAS BEEN THIRSTY. ABOUT 90 MINUTES AGO PT'S DEFIBRILLATOR DISCHARGED WITH RESULTANT ANTERIOR CHEST PAIN AND SHORTNESS OF AIR. PT DENIES FEVER, COUGH, NAUSEA, VOMITING, DIAPHORESIS. Allergies/Adverse Reactions: No Known Drug Allergies Allergy (Unverified 06/29/17 01:08) Home Medications: Alprazolam 1 mg PO TID PRN PRN 12/24/14 [History] Famotidine 20 mg [Pepcid 20 MG] 20 mg PO BID 12/24/14 [History] Lisinopril 5 mg [Zestril 5 MG] 5 mg PO DAILY 12/24/14 [History] Tamsulosin HCl 0.4 mg PO DAILY 07/16/15 [History] Piroxicam [Feldene] 10 mg PO BID 09/20/15 [History] Apixaban [Eliquis] 5 mg PO BID 01/21/16 [History] Amiodarone HCl [Pacerone] 400 mg PO DAILY 07/10/16 [History] Hx Tetanus, Diphtheria Vaccination/Date Given: Yes Hx Influenza Vaccination/Date Given: Yes Hx Pneumococcal Vaccination/Date Given: Yes Immunizations Up to Date: Yes - Review of Systems Constitutional: Other (THIRST), No Fever Respiratory: Dyspnea Cardiac: Chest Pain Abdominal/Gastrointestinal: No Nausea, No Vomiting Endocrine: No Excessive Sweating All Other Systems: Reviewed and Negative - Past Medical History Pertinent Past Medical History: Yes Neurological History: No Pertinent History ENT History: No Pertinent History Cardiac History: Arrhythmia, Coronary Artery Disease, High Cholesterol, Hypertension, Myocardial Infarction (HI), Other Respiratory History: No Pertinent History, Other Endocrine Medical History: No Pertinent History Musculoskeletal History: Other GI Medical History: Diverticulitis, GERD History: No Pertinent History Psycho-Social History: No Pertinent History Male Reproductive Disorders: No Pertinent History Other Medical History: CHRONIC LOWER BACK PAIN. BROKEN NOSE. fx ribs on TEJ SIDES - Past Surgical History Past Surgical History: Yes Neuro Surgical History: No Pertinent History Cardiac: CABG, Internal Defibrillator, Pacemaker, Other Respiratory: No Pertinent History Gastrointestinal: Appendectomy, Hemorrhoidectomy Genitourinary: No Pertinent History Musculoskeletal: No Pertinent History Male Surgical History: No Pertinent History Other Surgical History: defib placement and removal - Social History Smoking Status: Current every day smoker How long have you smoked: 55 Exposure to second hand smoke: Yes Drug Use: none Patient Lives Alone: No - Nursing Vital Signs Nursing Vital Signs: Initial Vital Signs Temperature 97.7 F 06/29/17 01:09 Pulse Rate 88 06/29/17 01:09 Respiratory Rate 20 06/29/17 01:09 Blood Pressure 152/84 06/29/17 01:09 O2 Sat by Pulse Oximetry 97 06/29/17 01:09 Pain Scale Pain Intensity 6 - Physical Exam General Appearance: alert Eye Exam: PERRL/EOMI Ears, Nose, Throat Exam: dry mucous membranes, other (CERUMEN OCCLUSION OF RIGHT EAR) Neck Exam: normal inspection Respiratory Exam: crackles/rales (AT BASES) Cardiovascular Exam: normal heart sounds Gastrointestinal/Abdomen Exam: soft, normal bowel sounds Back Exam: normal range of motion Extremity Exam: pedal edema (+1 BILATERALLY) Neurologic Exam: alert, cooperative Skin Exam: warm, dry SpO2 Interpretation: normal SpO2: 97 Oxygen Delivery: Room Air - Course Nursing assessment & vital signs reviewed: Yes EKG Interpreted by Me: RATE (77), NORMAL INTERVALS, Non-specific ST Changes, Other (PACEMAKER RHYTHM) - Radiology Exams Chest X-ray Interpretation: Interpreted by me (CM) Ordered Tests: Active Orders 24 hr Category Date Time Status Ring Striker STAT Care 06/29/17 01:26 Active EKG-ER Only STAT Care 06/29/17 01:25 Active IV Insertion STAT Care 06/29/17 01:25 Active Oxygen-ED Only NASAL CANNULA 2 lpm Care 06/29/17 01:25 Active Pulse Oximetry (ED) STAT Care 06/29/17 01:25 Active CHEST 2 VIEWS (PA AND LAT) Stat Exams 06/29/17 01:25 Taken AMYLASE Stat Lab 06/29/17 01:20 Completed CBC W DIFF Stat Lab 06/29/17 01:20 Completed CMP Stat Lab 06/29/17 01:20 Completed LIPASE Stat Lab 06/29/17 01:20 Completed MAGNESIUM Stat Lab 06/29/17 01:20 Completed Manual Differential NC Stat Lab 06/29/17 01:20 Completed NT PRO BNP Stat Lab 06/29/17 01:20 Completed PROTIME WITH INR Stat Lab 06/29/17 01:20 Completed PTT Stat Lab 06/29/17 01:20 Completed TROPONIN Q3H Lab 06/29/17 01:20 Completed TROPONIN Q3H Lab 06/29/17 04:30 Ordered TROPONIN Q3H Lab 06/29/17 07:30 Ordered TROPONIN Q3H Lab 06/29/17 10:30 Ordered TROPONIN Q3H Lab 06/29/17 13:30 Ordered UA W/RFX UR CULTURE Stat Lab 06/29/17 03:00 Completed Medication Summary Generic Name Dose Route Start Last Admin Trade Name Freq PRN Reason Stop Dose Admin Sodium Chloride 1,000 mls @ 100 mls/hr 06/29/17 01:30 06/29/17 01:32 Sodium Chloride 0.9% 1000 Ml IV 07/29/17 01:29 100 mls/hr .Q10H BELL Administration Discontinued Medications Generic Name Dose Route Start Last Admin Trade Name Freq PRN Reason Stop Dose Admin Aspirin 324 mg 06/29/17 01:25 06/29/17 01:33 Baby Aspirin 81 Mg Chew PO 06/29/17 01:26 324 mg STAT ONE Administration Aspirin Confirm 06/29/17 01:31 Baby Aspirin 81 Mg Chew Administered 06/29/17 01:32 Dose 324 mg .ROUTE .STK-MED ONE Fentanyl Citrate 50 mcg 06/29/17 02:52 06/29/17 03:00 Sublimaze 100 Mcg/2 Ml IV 06/29/17 02:53 50 mcg STAT ONE Administration Fentanyl Citrate Confirm 06/29/17 02:58 Sublimaze 100 Mcg/2 Ml Administered 06/29/17 02:59 Dose 100 mcg .ROUTE .STK-MED ONE Furosemide 40 mg 06/29/17 01:25 06/29/17 01:32 Lasix 40 Mg/4 Ml IV 06/29/17 01:26 40 mg STAT ONE Administration Furosemide Confirm 06/29/17 01:31 Lasix 40 Mg/4 Ml Administered 06/29/17 01:32 Dose 40 mg .ROUTE .STK-MED ONE Promethazine HCl 12.5 mg 06/29/17 02:52 06/29/17 03:00 Phenergan 25 Mg Inj IV 06/29/17 02:53 12.5 mg STAT ONE Administration Promethazine HCl Confirm 06/29/17 02:57 Phenergan 25 Mg Inj Administered 06/29/17 02:58 Dose 25 mg .ROUTE .STK-MED ONE Lab/Rad Data: Laboratory Result Diagrams 06/29/17 01:20 06/29/17 01:20 Laboratory Results 06/29/17 06/29/17 06/29/17 Range/Units 03:00 01:20 01:20 WBC (4.0-10.5) K/mm3 RBC (4.1-5.6) M/mm3 Hgb (12.5-18.0) gm/dl Hct (42-50) % MCV (78-100) fl MCH (26-32) pg MCHC (32-36) g/dl RDW (11.5-14.0) % Plt Count (150-450) K/mm3 MPV (6-9.5) fl INR 1.25 (0.8-3.0) APTT 39.7 H (24.1-36.1) SECONDS Sodium (136-145) mEq/L Potassium (3.5-5.1) mEq/L Chloride (98-107) mEq/L Carbon Dioxide (21-32) mEq/L Anion Gap (5-15) MEQ/L BUN (9-20) mg/dL Creatinine (0.55-1.30) mg/dl Estimated GFR ML/MIN Glucose (70-110) MG/DL Calcium (8.5-10.1) mg/dL Magnesium (1.8-2.4) mg/dL Total Bilirubin (0.2-1.0) mg/dL AST (15-37) U/L ALT (12-78) U/L Alkaline Phosphatase (46-116) U/L Troponin I < 0.017 (0.000-0.056) ng/ml NT-Pro-B Natriuret Pep (0-125) pg/ml Serum Total Protein (6.4-8.2) gm/dL Albumin (3.4-5.0) g/dL Amylase (25-115) U/L Lipase (73-393) U/L Ur Collection Type CLEAN CATCH Urine Color COLORLESS (YELLOW) Urine Appearance CLEAR (CLEAR) Urine pH 6.5 (5-6) Ur Specific [place] 1.005 (1.005-1.025) Urine Protein NEGATIVE (Negative) Urine Ketones NEGATIVE (NEGATIVE) Urine Blood NEGATIVE (0-5) Osmin/ul Urine Nitrite NEGATIVE (NEGATIVE) Urine Bilirubin NEGATIVE (NEGATIVE) Urine Urobilinogen NORMAL (0-1) mg/dL Ur Leukocyte Esterase NEGATIVE (NEGATIVE) Urine Culture Reflexed NO (NO) Urine Glucose NEGATIVE (NEGATIVE) mg/dL Specimen Received 06/29/17 0300 06/29/17 06/29/17 Range/Units 01:20 01:20 WBC 20.0 H (4.0-10.5) K/mm3 RBC 4.80 (4.1-5.6) M/mm3 Hgb 11.4 L (12.5-18.0) gm/dl Hct 38.4 L (42-50) % MCV 80.0 (78-100) fl MCH 23.7 L (26-32) pg MCHC 29.7 L (32-36) g/dl RDW 19.0 H (11.5-14.0) % Plt Count 200 (150-450) K/mm3 MPV 9.8 H (6-9.5) fl INR (0.8-3.0) APTT (24.1-36.1) SECONDS Sodium 139 (136-145) mEq/L Potassium 3.9 (3.5-5.1) mEq/L Chloride 105 (98-107) mEq/L Carbon Dioxide 26.2 (21-32) mEq/L Anion Gap 11.2 (5-15) MEQ/L BUN 17 (9-20) mg/dL Creatinine 1.20 (0.55-1.30) mg/dl Estimated GFR > 60 ML/MIN Glucose 119 H (70-110) MG/DL Calcium 8.7 (8.5-10.1) mg/dL Magnesium 1.9 (1.8-2.4) mg/dL Total Bilirubin 0.30 (0.2-1.0) mg/dL AST 17 (15-37) U/L ALT 26 (12-78) U/L Alkaline Phosphatase 55 (46-116) U/L Troponin I (0.000-0.056) ng/ml NT-Pro-B Natriuret Pep 2392 H (0-125) pg/ml Serum Total Protein 7.3 (6.4-8.2) gm/dL Albumin 3.1 L (3.4-5.0) g/dL Amylase 57 (25-115) U/L Lipase 201 (73-393) U/L Ur Collection Type Urine Color (YELLOW) Urine Appearance (CLEAR) Urine pH (5-6) Ur Specific [place] (1.005-1.025) Urine Protein (Negative) Urine Ketones (NEGATIVE) Urine Blood (0-5) Osmin/ul Urine Nitrite (NEGATIVE) Urine Bilirubin (NEGATIVE) Urine Urobilinogen (0-1) mg/dL Ur Leukocyte Esterase (NEGATIVE) Urine Culture Reflexed (NO) Urine Glucose (NEGATIVE) mg/dL Specimen Received - Progress Discussed with : Nasir (OBS - [id number]) - Departure Time of Disposition: 03:26 Departure Disposition: Observation Clinical Impression: CHEST PAIN, CAD, HTN, GERD Condition: Stable Critical Care Time: No Referrals: SHIMON GODDARD MD [Primary Care Provider] -
[2017-06-29 01:46] LABS: Hematocrit 38.4 % (42-50); Hemoglobin 11.4 gm/dl (12.5-18.0); Mean Corpuscular Hgb Concent. 29.7 g/dl (32-36); Mean Platelet Volume 9.8 fl (6-9.5); Platelet Count 200 K/mm3 (150-450)
[2017-06-29 02:00] LABS: INR 1.25 (0.8-3.0)
[2017-06-29 02:03] LABS: PTT 39.7 SECONDS (24.1-36.1)
[2017-06-29 02:16] LABS: Mean Corpuscular Hemoglobin 23.7 pg (26-32)
[2017-06-29 02:17] LABS: ALBUMIN 3.1 g/dL (3.4-5.0); ALKALINE PHOSPHATASE 55 U/L (46-116); AMYLASE 57 U/L (25-115); ANION GAP 11.2 MEQ/L (5-15); BLOOD UREA NITROGEN 17 mg/dL (9-20); CHLORIDE 105 mEq/L (98-107); Calcium 8.7 mg/dL (8.5-10.1); Carbon Dioxide 26.2 mEq/L (21-32); EST GLOMERULAR FILTRATION RATE > 60 ML/MIN; Glucose 119 MG/DL (70-110); LIPASE 201 U/L (73-393); MAGNESIUM 1.9 mg/dL (1.8-2.4); NT PRO BNP 2392 pg/ml (0-125); Potassium 3.9 mEq/L (3.5-5.1); SGOT/AST 17 U/L (15-37); SGPT/ALT 26 U/L (12-78); SODIUM 139 mEq/L (136-145); Total Protein 7.3 gm/dL (6.4-8.2)
[2017-06-29] MEDS ORDERED: SUBLIMAZE 100 MCG/2 ML IV ONE (02:52)
[2017-06-29] MEDS ORDERED: Phenergan 25 MG INJ IV ONE (02:52)
[2017-06-29] MEDS ORDERED: Phenergan 25 MG INJ ONE (02:57)
[2017-06-29] MEDS ORDERED: SUBLIMAZE 100 MCG/2 ML ONE (02:58)
[2017-06-29 03:14] LABS: Appearance CLEAR (CLEAR); Bilirubin NEGATIVE (NEGATIVE); Blood NEGATIVE Ery/ul (0-5); Glucose NEGATIVE (NEGATIVE); Ketones NEGATIVE (NEGATIVE); Leukocyte Esterase NEGATIVE (NEGATIVE); Nitrite NEGATIVE (NEGATIVE); Ph 6.5 (5-6); Protein,Urine Dip NEGATIVE (Negative); Specific Gravity 1.005 (1.005-1.025); Urobilinogen NORMAL mg/dL (0-1)
[2017-06-29 03:42] LABS: Lymphocytes 48 % (24-44); Monocyte 2 % (0.0-12.0); Neutrophils 50 % (36.-66.); Total Cells Counted 100
[2017-06-29 03:43] LABS: Platelet Estimate NORMAL (NORMAL)
[2017-06-29] MEDS ORDERED: Phenergan 25 MG INJ IV PRN (04:36)
[2017-06-29] MEDS ORDERED: TYLENOL 325 MG PO PRN (04:36)
[2017-06-29] MEDS ORDERED: Nitrostat 0.4 MG Tablet SL PRN (04:36)
[2017-06-29] MEDS: SUBLIMAZE 100 MCG/2 ML IV PRN ×3 (07:54→20:26)
[2017-06-29 08:43] LABS: ALBUMIN 3.1 g/dL (3.4-5.0); ALKALINE PHOSPHATASE 52 U/L (46-116); ANION GAP 14.6 MEQ/L (5-15); BLOOD UREA NITROGEN 14 mg/dL (9-20); CHLORIDE 104 mEq/L (98-107); Calcium 8.9 mg/dL (8.5-10.1); Carbon Dioxide 27.1 mEq/L (21-32); Creatinine 1 1.18 mg/dl (0.55-1.30); EST GLOMERULAR FILTRATION RATE > 60 ML/MIN; Glucose 105 MG/DL (70-110); Potassium 4.3 mEq/L (3.5-5.1); SGOT/AST 19 U/L (15-37); SGPT/ALT 27 U/L (12-78); SODIUM 141 mEq/L (136-145); Total Protein 7.4 gm/dL (6.4-8.2)
[2017-06-29 08:48] LABS: Hematocrit 39.9 % (42-50); Hemoglobin 11.9 gm/dl (12.5-18.0); Mean Cell Volume 79.8 fl (78-100); Mean Corpuscular Hemoglobin 23.8 pg (26-32); Mean Corpuscular Hgb Concent. 29.8 g/dl (32-36); Mean Platelet Volume 9.3 fl (6-9.5); Platelet Count 192 K/mm3 (150-450); Red Cell Distribution Width 19.2 % (11.5-14.0); White Blood Count 20.7 K/mm3 (4.0-10.5)
[2017-06-29 08:55] LABS: BAND 1 % (0.0-2.0); Basophil 1 % (0.0-1.0); Eosinophil 2 % (0.00-3.0); Lymphocytes 60 % (24-44); Monocyte 7 % (0.0-12.0); Neutrophils 29 % (36.-66.); Platelet Estimate NORMAL (NORMAL); Total Cells Counted 100
--- NOTE | 2017-06-29 09:10 | XRAY ---
Indication: Short of breath. Comparison: February 26, 2017. PA/lateral chest remains clear. Heart is not enlarged again demonstrating previous CABG surgery with right-sided pacemaker/leads. Vascularity normal. Bony thorax intact again with mild osteopenia. Impression: Stable nonacute chest with chronic features.
[2017-06-29] MEDS ORDERED: MEDICATION INTERVENTION MC PRN (10:18)
[2017-06-29] MEDS: Pepcid 20 MG PO SCH ×2 (12:20→22:39)
[2017-06-29] MEDS: Flomax 0.4 MG PO SCH (12:20)
[2017-06-29] MEDS: Zestril 5 MG PO SCH (12:20)
[2017-06-29] MEDS: Cordarone 200 MG PO SCH (12:20)
[2017-06-29] MEDS: Toprol-Xl 25MG Tablets PO SCH (12:20)
[2017-06-29] MEDS: XANAX 1 MG PO SCH ×3 (12:20→22:39)
[2017-06-29] MEDS: ELIQUIS PO SCH ×2 (12:21→22:39)
--- NOTE | 2017-06-29 12:23 | PCM.SSS ---
History of Present Illness - Chief Complaint Chief Complaint: chest pain History of Present Illness: is a 66 year old male.c/o having increased swelling recently, AICD went off prior to arrival - Review of Systems Constitutional: No Fever, No Chills Eyes: No Symptoms Ears, Nose, & Throat: No Symptoms Respiratory: No Cough, No Short Of Breath Cardiac: No Chest Pain, No Edema, No Syncope Abdominal/Gastrointestinal: No Abdominal Pain, No Nausea, No Vomiting, No Diarrhea Genitourinary Symptoms: No Dysuria Musculoskeletal: No Back Pain, No Neck Pain Skin: No Rash Neurological: No Dizziness, No Focal Weakness, No Sensory Changes Psychological: No Symptoms Endocrine: No Symptoms Hematologic/Lymphatic: No Symptoms Immunological/Allergic: No Symptoms Medications & Allergies Home Medications: Home Medication List Alprazolam 1 mg PO TID 12/24/14 [History Confirmed 06/29/17] Famotidine 20 mg [Pepcid 20 MG] 20 mg PO BID 12/24/14 [History Confirmed 06/29/17] Lisinopril 5 mg [Zestril 5 MG] 5 mg PO DAILY 12/24/14 [History Confirmed 06/29/17] Tamsulosin HCl 0.4 mg PO DAILY 07/16/15 [History Confirmed 06/29/17] Piroxicam [Feldene] 10 mg PO BID 09/20/15 [History Confirmed 06/29/17] Apixaban [Eliquis] 5 mg PO BID 01/21/16 [History Confirmed 06/29/17] Amiodarone HCl [Pacerone] 400 mg PO DAILY 07/10/16 [History Confirmed 06/29/17] Metoprolol Succinate 25 mg Xl* [Toprol-Xl 25MG Tablets] 25 mg PO DAILY [History Confirmed 06/29/17] Allergies/Adverse Reactions: Allergies Allergy/AdvReac Type Severity Reaction Status Date / Time No Known Drug Allergies Allergy Unverified 06/29/17 01:08 - Past Medical History Past Medical History: Yes Neurological History: No Pertinent History ENT History: No Pertinent History Cardiac History: Arrhythmia, Coronary Artery Disease, High Cholesterol, Hypertension, Myocardial Infarction ([place]), Other Respiratory History: No Pertinent History, Other Endocrine Medical History: No Pertinent History Musculoskelatal History: Other GI Medical History: Diverticulitis, GERD History: No Pertinent History Pyscho-Social History: No Pertinent History Male Reproductive Disorders: No Pertinent History Comment: CHRONIC LOWER BACK PAIN. BROKEN NOSE. fx ribs on TEJ SIDES - Past Surgical History Past Surgical History: Yes Neuro Surgical History: No Pertinent History Cardiac History: CABG, Internal Defibrillator, Pacemaker, Other Respiratory Surgery: No Pertinent History GI Surgical History: Appendectomy, Hemorrhoidectomy Genitourinary Surgical Hx: No Pertinent History Musculskeletal Surgical Hx: No Pertinent History Male Surgical History: No Pertinent History Other Surgical History: defib placement and removal - Social History Smoking Status: Current every day smoker How long have you smoked: 55 Exposure to second hand smoke: Yes Alcohol: None Drug Use: none - Physical Exam Vital Signs: Vital Signs - 24 hr Temp Pulse Pulse Resp BP Pulse Ox 06/29/17 11:12 97.8 F 71 20 135/64 96 06/29/17 07:10 97.8 F 81 22 130/78 96 06/29/17 04:29 98.2 F 80 24 153/89 95 06/29/17 03:26 97 06/29/17 03:24 70 18 145/78 98 06/29/17 02:14 71 17 151/74 98 06/29/17 01:57 98 06/29/17 01:09 97.7 F 88 88 20 152/84 97 Oxygen-Last 24 hours O2 Percentage 3 Liters = 32% O2 Percentage 2 Liters = 28% General Appearance: no apparent distress, alert Neurologic Exam: alert, oriented x 3, cooperative, normal mood/affect, nml cerebellar function, nml station & gait, sensation nml, No motor deficits Eye Exam: PERRL/EOMI, eyes nml inspection Ears, Nose, Throat Exam: normal ENT inspection, TMs normal, pharynx normal, moist mucous membranes Neck Exam: normal inspection, non-tender, supple, full range of motion Respiratory Exam: normal breath sounds, lungs clear, No respiratory distress Cardiovascular Exam: regular rate/rhythm, normal heart sounds, normal peripheral pulses Gastrointestinal/Abdomen Exam: soft, normal bowel sounds, No tenderness, No mass Back Exam: normal inspection, normal range of motion, No CVA tenderness, No vertebral tenderness Extremity Exam: normal inspection, normal range of motion, pelvis stable Skin Exam: normal color, warm, dry, No rash Lymphatic Exam: No adenopathy Results - Labs Lab/Micro Results: Lab Results-Last 24 Hours 06/29/17 06/29/17 06/29/17 Range/Units 04:50 07:00 07:30 WBC 20.7 H (4.0-10.5) K/mm3 Corrected WBC (auto) RBC 5.00 (4.1-5.6) M/mm3 Hgb 11.9 L (12.5-18.0) gm/dl Hct 39.9 L (42-50) % MCV 79.8 (78-100) fl MCH 23.8 L (26-32) pg MCHC 29.8 L (32-36) g/dl RDW 19.2 H (11.5-14.0) % Plt Count 192 (150-450) K/mm3 MPV 9.3 (6-9.5) fl Gran % Lymphocytes % Monocytes % Eosinophils % Basophils % Segmented Neutrophils 29 L (36.-66.) % Band Neutrophils 1 (0.0-2.0) % Lymphocytes (Manual) 60 H (24-44) % Monocytes (Manual) 7 (0.0-12.0) % Eosinophils (Manual) 2 (0.00-3.0) % Basophils (Manual) 1 (0.0-1.0) % Basophils # Differential Comment NORMAL Platelet Estimate NORMAL (NORMAL) Sodium (136-145) mEq/L Potassium (3.5-5.1) mEq/L Chloride (98-107) mEq/L Carbon Dioxide (21-32) mEq/L Anion Gap (5-15) MEQ/L BUN (9-20) mg/dL Creatinine (0.55-1.30) mg/dl Estimated GFR ML/MIN Glucose (70-110) MG/DL Calcium (8.5-10.1) mg/dL Total Bilirubin (0.2-1.0) mg/dL AST (15-37) U/L ALT (12-78) U/L Alkaline Phosphatase (46-116) U/L Troponin I 0.019 0.017 (0.000-0.056) ng/ml Serum Total Protein (6.4-8.2) gm/dL Albumin (3.4-5.0) g/dL Slides for Path Review 0206/29/17 06/29/17 Range/Units 07:30 07:30 10:55 WBC Cancelled (4.0-10.5) K/mm3 Corrected WBC (auto) Cancelled RBC Cancelled (4.1-5.6) M/mm3 Hgb Cancelled (12.5-18.0) gm/dl Hct Cancelled (42-50) % MCV Cancelled (78-100) fl MCH Cancelled (26-32) pg MCHC Cancelled (32-36) g/dl RDW Cancelled (11.5-14.0) % Plt Count Cancelled (150-450) K/mm3 MPV Cancelled (6-9.5) fl Gran % Cancelled Lymphocytes % Cancelled Monocytes % Cancelled Eosinophils % Cancelled Basophils % Cancelled Segmented Neutrophils (36.-66.) % Band Neutrophils (0.0-2.0) % Lymphocytes (Manual) (24-44) % Monocytes (Manual) (0.0-12.0) % Eosinophils (Manual) (0.00-3.0) % Basophils (Manual) (0.0-1.0) % Basophils # Cancelled Differential Comment Platelet Estimate (NORMAL) Sodium 141 (136-145) mEq/L Potassium 4.3 (3.5-5.1) mEq/L Chloride 104 (98-107) mEq/L Carbon Dioxide 27.1 (21-32) mEq/L Anion Gap 14.6 (5-15) MEQ/L BUN 14 (9-20) mg/dL Creatinine 1.18 (0.55-1.30) mg/dl Estimated GFR > 60 ML/MIN Glucose 105 (70-110) MG/DL Calcium 8.9 (8.5-10.1) mg/dL Total Bilirubin 0.40 (0.2-1.0) mg/dL AST 19 (15-37) U/L ALT 27 (12-78) U/L Alkaline Phosphatase 52 (46-116) U/L Troponin I 0.019 (0.000-0.056) ng/ml Serum Total Protein 7.4 (6.4-8.2) gm/dL Albumin 3.1 L (3.4-5.0) g/dL Slides for Path Review Cancelled Assessment/Plan (1) AICD discharge Current Visit: Yes Status: Acute Assessment & Plan: Chief Complaint Diagnosis chest pain Allergies Allergy/AdvReac Type Severity Reaction Status Date / Time No Known Drug Allergies Allergy Unverified 06/29/17 01:08 Vital Signs (Last 24 hours) Temp Pulse Pulse Resp BP Pulse Ox 06/29/17 11:12 97.8 F 71 20 135/64 96 06/29/17 07:10 97.8 F 81 22 130/78 96 06/29/17 04:29 98.2 F 80 24 153/89 95 06/29/17 03:26 97 06/29/17 03:24 70 18 145/78 98 06/29/17 02:14 71 17 151/74 98 06/29/17 01:57 98 06/29/17 01:09 97.7 F 88 88 20 152/84 97 Home Medications Medication Instructions Recorded Confirmed Last Taken Type Metoprolol Succinate 25 mg Xl* 25 mg PO DAILY 06/29/17 06/29/17 06/28/17 History [Toprol-Xl 25MG Tablets] Current Medications Generic Name Dose Route Start Last Admin Trade Name Freq PRN Reason Stop Dose Admin Acetaminophen 650 mg 06/29/17 04:36 Tylenol 325 Mg PO 07/29/17 04:35 Q4H PRN PRN PAIN AND/OR FEVER Alprazolam 1 mg 06/29/17 10:00 Xanax 1 Mg PO 07/29/17 09:59 TID [facility] Amiodarone HCl 400 mg 06/29/17 10:00 Cordarone 200 Mg PO 07/29/17 09:59 DAILY [facility] Apixaban 5 mg 06/29/17 10:00 Eliquis PO 07/29/17 09:59 BID [facility] Famotidine 20 mg 06/29/17 10:00 Pepcid 20 Mg PO 07/29/17 09:59 BID [facility] Fentanyl Citrate 25 mcg 06/29/17 04:36 06/29/17 07:54 Sublimaze 100 Mcg/2 Ml IV 07/04/17 04:35 25 mcg Q4H PRN PRN Administration SEVERE PAIN Sodium Chloride 1,000 mls @ 50 mls/hr 06/29/17 04:36 Sodium Chloride 0.9% 1000 Ml IV 07/29/17 04:35 .Q20H BELL Lisinopril 5 mg 06/29/17 10:00 Zestril 5 Mg PO 07/29/17 09:59 DAILY [facility] Metoprolol Succinate 25 mg 06/29/17 10:00 Toprol-Xl 25mg Tablets PO 07/29/17 09:59 DAILY [facility] Nitroglycerin 0.4 mg 06/29/17 04:36 Nitrostat 0.4 Mg Tablet SL 07/29/17 04:35 Q5MIN PRN MR X 3 PRN CHEST PAIN Promethazine HCl 12.5 mg 06/29/17 04:36 06/29/17 07:55 Phenergan 25 Mg Inj IV 07/29/17 04:35 12.5 mg Q6H PRN PRN Administration NAUSEA/VOMITING Tamsulosin HCl 0.4 mg 06/29/17 10:00 Flomax 0.4 Mg PO 07/29/17 09:59 DAILY [facility] Discontinued Medications Generic Name Dose Route Start Last Admin Trade Name Freq PRN Reason Stop Dose Admin Aspirin 324 mg 06/29/17 01:25 06/29/17 01:33 Baby Aspirin 81 Mg Chew PO 06/29/17 01:26 324 mg STAT ONE Administration Aspirin Confirm 06/29/17 01:31 Baby Aspirin 81 Mg Chew Administered 06/29/17 01:32 Dose 324 mg .ROUTE .STK-MED ONE Fentanyl Citrate 50 mcg 06/29/17 02:52 06/29/17 03:00 Sublimaze 100 Mcg/2 Ml IV 06/29/17 02:53 50 mcg STAT ONE Administration Fentanyl Citrate Confirm 06/29/17 02:58 Sublimaze 100 Mcg/2 Ml Administered 06/29/17 02:59 Dose 100 mcg .ROUTE .STK-MED ONE Furosemide 40 mg 06/29/17 01:25 06/29/17 01:32 Lasix 40 Mg/4 Ml IV 06/29/17 01:26 40 mg STAT ONE Administration Furosemide Confirm 06/29/17 01:31 Lasix 40 Mg/4 Ml Administered 06/29/17 01:32 Dose 40 mg .ROUTE .STK-MED ONE Sodium Chloride 1,000 mls @ 100 mls/hr 06/29/17 01:30 06/29/17 01:32 Sodium Chloride 0.9% 1000 Ml IV 07/29/17 01:29 100 mls/hr .Q10H BELL Administration Sodium Chloride Confirm 06/29/17 01:31 Sodium Chloride 0.9% 1000 Ml Administered 06/29/17 01:32 Dose 1,000 mls @ ud .ROUTE .STK-MED ONE Promethazine HCl 12.5 mg 06/29/17 02:52 06/29/17 03:00 Phenergan 25 Mg Inj IV 06/29/17 02:53 12.5 mg STAT ONE Administration Promethazine HCl Confirm 06/29/17 02:57 Phenergan 25 Mg Inj Administered 06/29/17 02:58 Dose 25 mg .ROUTE .STK-MED ONE Intake & Output (Last 24 hours) 06/27/17 06/28/17 06/29/17 06/30/17 11:59 11:59 11:59 11:59 Intake Total 240 Output Total 700 Balance -460 Weight 108 kg Laboratory Results (Last 24 hours) 06/29/17 06/29/17 06/29/17 10:55 07:30 07:30 WBC Cancelled Corrected WBC (auto) Cancelled RBC Cancelled Hgb Cancelled Hct Cancelled MCV Cancelled MCH Cancelled MCHC Cancelled RDW Cancelled Plt Count Cancelled MPV Cancelled Gran % Cancelled Lymphocytes % Cancelled Monocytes % Cancelled Eosinophils % Cancelled Basophils % Cancelled Segmented Neutrophils Band Neutrophils Lymphocytes (Manual) Monocytes (Manual) Eosinophils (Manual) Basophils (Manual) Basophils # Cancelled Differential Comment Platelet Estimate INR APTT Sodium 141 Potassium 4.3 Chloride 104 Carbon Dioxide 27.1 Anion Gap 14.6 BUN 14 Creatinine 1.18 Estimated GFR > 60 Glucose 105 Calcium 8.9 Magnesium Total Bilirubin 0.40 AST 19 ALT 27 Alkaline Phosphatase 52 Troponin I 0.019 NT-Pro-B Natriuret Pep Serum Total Protein 7.4 Albumin 3.1 L Amylase Lipase Ur Collection Type Urine Color Urine Appearance Urine pH Ur Specific [place] Urine Protein Urine Ketones Urine Blood Urine Nitrite Urine Bilirubin Urine Urobilinogen Ur Leukocyte Esterase Urine Culture Reflexed Urine Glucose Slides for Path Review Cancelled Specimen Received 06/29/17 06/29/17 06/29/17 07:30 07:00 04:50 WBC 20.7 H Corrected WBC (auto) RBC 5.00 Hgb 11.9 L Hct 39.9 L MCV 79.8 MCH 23.8 L MCHC 29.8 L RDW 19.2 H Plt Count 192 MPV 9.3 Gran % Lymphocytes % Monocytes % Eosinophils % Basophils % Segmented Neutrophils 29 L Band Neutrophils 1 Lymphocytes (Manual) 60 H Monocytes (Manual) 7 Eosinophils (Manual) 2 Basophils (Manual) 1 Basophils # Differential Comment NORMAL Platelet Estimate NORMAL INR APTT Sodium Potassium Chloride Carbon Dioxide Anion Gap BUN Creatinine Estimated GFR Glucose Calcium Magnesium Total Bilirubin AST ALT Alkaline Phosphatase Troponin I 0.017 0.019 NT-Pro-B Natriuret Pep Serum Total Protein Albumin Amylase Lipase Ur Collection Type Urine Color Urine Appearance Urine pH Ur Specific [place] Urine Protein Urine Ketones Urine Blood Urine Nitrite Urine Bilirubin Urine Urobilinogen Ur Leukocyte Esterase Urine Culture Reflexed Urine Glucose Slides for Path Review Specimen Received 06/29/17 06/29/17 06/29/17 03:00 01:20 01:20 WBC Corrected WBC (auto) RBC Hgb Hct MCV MCH MCHC RDW Plt Count MPV Gran % Lymphocytes % Monocytes % Eosinophils % Basophils % Segmented Neutrophils Band Neutrophils Lymphocytes (Manual) Monocytes (Manual) Eosinophils (Manual) Basophils (Manual) Basophils # Differential Comment Platelet Estimate INR 1.25 APTT 39.7 H Sodium Potassium Chloride Carbon Dioxide Anion Gap BUN Creatinine Estimated GFR Glucose Calcium Magnesium Total Bilirubin AST ALT Alkaline Phosphatase Troponin I < 0.017 NT-Pro-B Natriuret Pep Serum Total Protein Albumin Amylase Lipase Ur Collection Type CLEAN CATCH Urine Color COLORLESS Urine Appearance CLEAR Urine pH 6.5 Ur Specific [place] 1.005 Urine Protein NEGATIVE Urine Ketones NEGATIVE Urine Blood NEGATIVE Urine Nitrite NEGATIVE Urine Bilirubin NEGATIVE Urine Urobilinogen NORMAL Ur Leukocyte Esterase NEGATIVE Urine Culture Reflexed NO Urine Glucose NEGATIVE Slides for Path Review Specimen Received 06/29/17 0300 06/29/17 06/29/17 01:20 01:20 WBC 20.0 H Corrected WBC (auto) RBC 4.80 Hgb 11.4 L Hct 38.4 L MCV 80.0 MCH 23.7 L MCHC 29.7 L RDW 19.0 H Plt Count 200 MPV 9.8 H Gran % Lymphocytes % Monocytes % Eosinophils % Basophils % Segmented Neutrophils 50 Band Neutrophils Lymphocytes (Manual) 48 H Monocytes (Manual) 2 Eosinophils (Manual) Basophils (Manual) Basophils # Differential Comment NORMAL Platelet Estimate NORMAL INR APTT Sodium 139 Potassium 3.9 Chloride 105 Carbon Dioxide 26.2 Anion Gap 11.2 BUN 17 Creatinine 1.20 Estimated GFR > 60 Glucose 119 H Calcium 8.7 Magnesium 1.9 Total Bilirubin 0.30 AST 17 ALT 26 Alkaline Phosphatase 55 Troponin I NT-Pro-B Natriuret Pep 2392 H Serum Total Protein 7.3 Albumin 3.1 L Amylase 57 Lipase 201 Ur Collection Type Urine Color Urine Appearance Urine pH Ur Specific [place] Urine Protein Urine Ketones Urine Blood Urine Nitrite Urine Bilirubin Urine Urobilinogen Ur Leukocyte Esterase Urine Culture Reflexed Urine Glucose Slides for Path Review Specimen Received Orders (Last 24 hours) Category Date Time Status Bedrest Activity 06/29/17 04:36 Active Admission/Status Order Care 06/29/17 04:36 Active Corporate Investigator STAT Care 06/29/17 01:26 Completed Code Status Order Care 06/29/17 04:36 Active EKG-ER Only STAT Care 06/29/17 01:25 Completed IV Care Q6H Care 06/29/17 04:36 Active IV Insertion STAT Care 06/29/17 01:25 Completed Intake and Output Q12H Care 06/29/17 04:36 Active Miscellaneous Nursing Order ROUTINE Care 06/29/17 09:29 Active Oxygen-ED Only NASAL CANNULA 2 lpm Care 06/29/17 01:25 Completed Pulse Oximetry (ED) STAT Care 06/29/17 01:25 Completed Telemetry Q12H Care 06/29/17 04:36 Active Vital Signs Q4H Care 06/29/17 04:36 Active Weight,Daily 0600 Care 06/29/17 04:36 Active Consult Cardiology ROUTINE Cons 06/29/17 09:29 Active Cardiac Diet Diet 06/29/17 Breakfast Active CHEST 2 VIEWS (PA AND LAT) Stat Exams 06/29/17 01:25 Completed AMYLASE Stat Lab 06/29/17 01:20 Completed CBC W DIFF Routine Lab 06/29/17 07:00 Completed CBC W DIFF Stat Lab 06/29/17 01:20 Completed CMP Stat Lab 06/29/17 01:20 Completed CMP Urgent Lab 06/29/17 07:30 Completed LIPASE Stat Lab 06/29/17 01:20 Completed MAGNESIUM Stat Lab 06/29/17 01:20 Completed Manual Differential NC Routine Lab 06/29/17 07:00 Completed Manual Differential NC Stat Lab 06/29/17 01:20 Completed NT PRO BNP Stat Lab 06/29/17 01:20 Completed PROTIME WITH INR Stat Lab 06/29/17 01:20 Completed PTT Stat Lab 06/29/17 01:20 Completed TROPONIN Q3H Lab 06/29/17 01:20 Completed TROPONIN Q3H Lab 06/29/17 04:50 Completed TROPONIN Q3H Lab 06/29/17 07:30 Completed TROPONIN Q3H Lab 06/29/17 10:55 Completed TROPONIN Q3H Lab 06/29/17 13:30 Ordered UA W/RFX UR CULTURE Stat Lab 06/29/17 03:00 Completed Acetaminophen 325 mg [Tylenol 325 mg] Med 06/29/17 04:36 Active 650 mg PO Q4H PRN PRN Alprazolam 1 mg [Xanax 1 mg] Med 06/29/17 10:00 Active 1 mg PO TID Amiodarone HCl 200 mg [Cordarone 200 MG] Med 06/29/17 10:00 Active 400 mg PO DAILY Apixaban [Eliquis] Med 06/29/17 10:00 Active 5 mg PO BID Aspirin 81 gm Chew [Baby Aspirin 81 mg Chew] Med 06/29/17 01:31 Discontinued 324 mg .ROUTE .STK-MED ONE Aspirin 81 gm Chew [Baby Aspirin 81 mg Chew] Med 06/29/17 01:25 Discontinued 324 mg PO STAT ONE Famotidine 20 mg [Pepcid 20 MG] Med 06/29/17 10:00 Active 20 mg PO BID Fentanyl Citrate 100 Mcg/2 ml* [Sublimaze 100 Mcg/2 ml* Med 06/29/17 02:58 Discontinued ] 100 mcg .ROUTE .STK-MED ONE Fentanyl Citrate 100 Mcg/2 ml* [Sublimaze 100 Mcg/2 ml* Med 06/29/17 04:36 Active ] 25 mcg IV Q4H PRN PRN Fentanyl Citrate 100 Mcg/2 ml* [Sublimaze 100 Mcg/2 ml* Med 06/29/17 02:52 Discontinued ] 50 mcg IV STAT ONE Furosemide 40 mg/4 ml [Lasix 40 MG/4 ML] Med 06/29/17 01:31 Discontinued 40 mg .ROUTE .STK-MED ONE Furosemide 40 mg/4 ml [Lasix 40 MG/4 ML] Med 06/29/17 01:25 Discontinued 40 mg IV STAT ONE Lisinopril 5 mg [Zestril 5 MG] Med 06/29/17 10:00 Active 5 mg PO DAILY Medication Intervention Med 06/29/17 10:18 Active 1 each MC UD PRN Metoprolol Succinate 25 mg Xl* [Toprol-Xl 25MG Tablets* Med 06/29/17 10:00 Active ] 25 mg PO DAILY NaCl 0.9% 1000 ml [Sodium Chloride 0.9% 1000 ML] 1,000 Med 06/29/17 01:30 Discontinued ml IV 100 mls/hr NaCl 0.9% 1000 ml [Sodium Chloride 0.9% 1000 ML] 1,000 Med 06/29/17 04:36 Active ml IV 50 mls/hr Nitroglycerin 0.4 mg Tablet [Nitrostat 0.4 MG Tablet Med 06/29/17 04:36 Active ] 0.4 mg SL Q5MIN PRN MR X 3 PRN Promethazine HCl 25 mg Amp [Phenergan 25 MG INJ] Med 06/29/17 04:36 Active 12.5 mg IV Q6H PRN PRN Promethazine HCl 25 mg Amp [Phenergan 25 MG INJ] Med 06/29/17 02:52 Discontinued 12.5 mg IV STAT ONE Promethazine HCl 25 mg Amp [Phenergan 25 MG INJ] Med 06/29/17 02:57 Discontinued 25 mg .ROUTE .STK-MED ONE Tamsulosin HCl 0.4 mg [Flomax 0.4 MG] Med 06/29/17 10:00 Active 0.4 mg PO DAILY EKG ROUTINE RT 06/29/17 08:00 Active Oxygen NASAL CANNULA 2 lpm RT 06/29/17 04:36 Active Pulse Oximetry RT 06/29/17 04:36 Active Transfer Order Routine Transfer 06/29/17 Completed Patient Care Notes (Last 24 hours) 06/29/17 09:26 Nursing Note by Zulema Argueta see medsurg assessment, Dr. Goddard called for update, see new orders for home meds, tele-cardiology with Dr. Miranda, and to contact company that manages A[employer]. Initialized on 06/29/17 09:26 - END OF NOTE 06/29/17 08:02 Nursing Note by Zulema Argueta see medsurg assessment, pt c/o chronic back pain, see MAR, given phenergan per pt request also. Initialized on 06/29/17 08:02 - END OF NOTE Code(s): Z45.02 - ENCNTR FOR ADJUST AND MGMT OF AUTOMATIC IMPLNTBL CARD DEFIB (2) AICD (automatic cardioverter/defibrillator) present Current Visit: Yes Status: Acute Code(s): Z95.810 - PRESENCE OF AUTOMATIC ( IMPLANTABLE) CARDIAC DEFIBRILLATOR (3) Chest pain Current Visit: Yes Status: Acute Code(s): R07.9 - CHEST PAIN, UNSPECIFIED (4) Degenerative disc disease at L5-S1 level Current Visit: Yes Status: Acute Code(s): M51.36 - OTHER INTERVERTEBRAL DISC DEGENERATION, LUMBAR REGION Hospital Summary - Hospital Course Hospital Course: Chief Complaint Diagnosis chest pain Allergies Allergy/AdvReac Type Severity Reaction Status Date / Time No Known Drug Allergies Allergy Unverified 06/29/17 01:08 Vital Signs (Last 24 hours) Temp Pulse Pulse Resp BP Pulse Ox 06/29/17 11:12 97.8 F 71 20 135/64 96 06/29/17 07:10 97.8 F 81 22 130/78 96 06/29/17 04:29 98.2 F 80 24 153/89 95 06/29/17 03:26 97 06/29/17 03:24 70 18 145/78 98 06/29/17 02:14 71 17 151/74 98 06/29/17 01:57 98 06/29/17 01:09 97.7 F 88 88 20 152/84 97 Home Medications Medication Instructions Recorded Confirmed Last Taken Type Metoprolol Succinate 25 mg Xl* 25 mg PO DAILY 06/29/17 06/29/17 06/28/17 History [Toprol-Xl 25MG Tablets] Current Medications Generic Name Dose Route Start Last Admin Trade Name Freq PRN Reason Stop Dose Admin Acetaminophen 650 mg 06/29/17 04:36 Tylenol 325 Mg PO 07/29/17 04:35 Q4H PRN PRN PAIN AND/OR FEVER Alprazolam 1 mg 06/29/17 10:00 Xanax 1 Mg PO 07/29/17 09:59 TID [facility] Amiodarone HCl 400 mg 06/29/17 10:00 Cordarone 200 Mg PO 07/29/17 09:59 DAILY [facility] Apixaban 5 mg 06/29/17 10:00 Eliquis PO 07/29/17 09:59 BID [facility] Famotidine 20 mg 06/29/17 10:00 Pepcid 20 Mg PO 07/29/17 09:59 BID [facility] Fentanyl Citrate 25 mcg 06/29/17 04:36 06/29/17 07:54 Sublimaze 100 Mcg/2 Ml IV 07/04/17 04:35 25 mcg Q4H PRN PRN Administration SEVERE PAIN Sodium Chloride 1,000 mls @ 50 mls/hr 06/29/17 04:36 Sodium Chloride 0.9% 1000 Ml IV 07/29/17 04:35 .Q20H [facility] Lisinopril 5 mg 06/29/17 10:00 Zestril 5 Mg PO 07/29/17 09:59 DAILY [facility] Metoprolol Succinate 25 mg 06/29/17 10:00 Toprol-Xl 25mg Tablets PO 07/29/17 09:59 DAILY [facility] Nitroglycerin 0.4 mg 06/29/17 04:36 Nitrostat 0.4 Mg Tablet SL 07/29/17 04:35 Q5MIN PRN MR X 3 PRN CHEST PAIN Promethazine HCl 12.5 mg 06/29/17 04:36 06/29/17 07:55 Phenergan 25 Mg Inj IV 07/29/17 04:35 12.5 mg Q6H PRN PRN Administration NAUSEA/VOMITING Tamsulosin HCl 0.4 mg 06/29/17 10:00 Flomax 0.4 Mg PO 07/29/17 09:59 DAILY [facility] Discontinued Medications Generic Name Dose Route Start Last Admin Trade Name Freq PRN Reason Stop Dose Admin Aspirin 324 mg 06/29/17 01:25 06/29/17 01:33 Baby Aspirin 81 Mg Chew PO 06/29/17 01:26 324 mg STAT ONE Administration Aspirin Confirm 06/29/17 01:31 Baby Aspirin 81 Mg Chew Administered 06/29/17 01:32 Dose 324 mg .ROUTE .STK-MED ONE Fentanyl Citrate 50 mcg 06/29/17 02:52 06/29/17 03:00 Sublimaze 100 Mcg/2 Ml IV 06/29/17 02:53 50 mcg STAT ONE Administration Fentanyl Citrate Confirm 06/29/17 02:58 Sublimaze 100 Mcg/2 Ml Administered 06/29/17 02:59 Dose 100 mcg .ROUTE .STK-MED ONE Furosemide 40 mg 06/29/17 01:25 06/29/17 01:32 Lasix 40 Mg/4 Ml IV 06/29/17 01:26 40 mg STAT ONE Administration Furosemide Confirm 06/29/17 01:31 Lasix 40 Mg/4 Ml Administered 06/29/17 01:32 Dose 40 mg .ROUTE .STK-MED ONE Sodium Chloride 1,000 mls @ 100 mls/hr 06/29/17 01:30 06/29/17 01:32 Sodium Chloride 0.9% 1000 Ml IV 07/29/17 01:29 100 mls/hr .Q10H BELL Administration Sodium Chloride Confirm 06/29/17 01:31 Sodium Chloride 0.9% 1000 Ml Administered 06/29/17 01:32 Dose 1,000 mls @ ud .ROUTE .STK-MED ONE Promethazine HCl 12.5 mg 06/29/17 02:52 06/29/17 03:00 Phenergan 25 Mg Inj IV 06/29/17 02:53 12.5 mg STAT ONE Administration Promethazine HCl Confirm 06/29/17 02:57 Phenergan 25 Mg Inj Administered 06/29/17 02:58 Dose 25 mg .ROUTE .STK-MED ONE Intake & Output (Last 24 hours) 06/27/17 06/28/17 06/29/17 06/30/17 11:59 11:59 11:59 11:59 Intake Total 240 Output Total 700 Balance -460 Weight 108 kg Laboratory Results (Last 24 hours) 06/29/17 06/29/17 06/29/17 10:55 07:30 07:30 WBC Cancelled Corrected WBC (auto) Cancelled RBC Cancelled Hgb Cancelled Hct Cancelled MCV Cancelled MCH Cancelled MCHC Cancelled RDW Cancelled Plt Count Cancelled MPV Cancelled Gran % Cancelled Lymphocytes % Cancelled Monocytes % Cancelled Eosinophils % Cancelled Basophils % Cancelled Segmented Neutrophils Band Neutrophils Lymphocytes (Manual) Monocytes (Manual) Eosinophils (Manual) Basophils (Manual) Basophils # Cancelled Differential Comment Platelet Estimate INR APTT Sodium 141 Potassium 4.3 Chloride 104 Carbon Dioxide 27.1 Anion Gap 14.6 BUN 14 Creatinine 1.18 Estimated GFR > 60 Glucose 105 Calcium 8.9 Magnesium Total Bilirubin 0.40 AST 19 ALT 27 Alkaline Phosphatase 52 Troponin I 0.019 NT-Pro-B Natriuret Pep Serum Total Protein 7.4 Albumin 3.1 L Amylase Lipase Ur Collection Type Urine Color Urine Appearance Urine pH Ur Specific [place] Urine Protein Urine Ketones Urine Blood Urine Nitrite Urine Bilirubin Urine Urobilinogen Ur Leukocyte Esterase Urine Culture Reflexed Urine Glucose Slides for Path Review Cancelled Specimen Received 06/29/17 06/29/17 06/29/17 07:30 07:00 04:50 WBC 20.7 H Corrected WBC (auto) RBC 5.00 Hgb 11.9 L Hct 39.9 L MCV 79.8 MCH 23.8 L MCHC 29.8 L RDW 19.2 H Plt Count 192 MPV 9.3 Gran % Lymphocytes % Monocytes % Eosinophils % Basophils % Segmented Neutrophils 29 L Band Neutrophils 1 Lymphocytes (Manual) 60 H Monocytes (Manual) 7 Eosinophils (Manual) 2 Basophils (Manual) 1 Basophils # Differential Comment NORMAL Platelet Estimate NORMAL INR APTT Sodium Potassium Chloride Carbon Dioxide Anion Gap BUN Creatinine Estimated GFR Glucose Calcium Magnesium Total Bilirubin AST ALT Alkaline Phosphatase Troponin I 0.017 0.019 NT-Pro-B Natriuret Pep Serum Total Protein Albumin Amylase Lipase Ur Collection Type Urine Color Urine Appearance Urine pH Ur Specific [place] Urine Protein Urine Ketones Urine Blood Urine Nitrite Urine Bilirubin Urine Urobilinogen Ur Leukocyte Esterase Urine Culture Reflexed Urine Glucose Slides for Path Review Specimen Received 06/29/17 06/29/17 06/29/17 03:00 01:20 01:20 WBC Corrected WBC (auto) RBC Hgb Hct MCV MCH MCHC RDW Plt Count MPV Gran % Lymphocytes % Monocytes % Eosinophils % Basophils % Segmented Neutrophils Band Neutrophils Lymphocytes (Manual) Monocytes (Manual) Eosinophils (Manual) Basophils (Manual) Basophils # Differential Comment Platelet Estimate INR 1.25 APTT 39.7 H Sodium Potassium Chloride Carbon Dioxide Anion Gap BUN Creatinine Estimated GFR Glucose Calcium Magnesium Total Bilirubin AST ALT Alkaline Phosphatase Troponin I < 0.017 NT-Pro-B Natriuret Pep Serum Total Protein Albumin Amylase Lipase Ur Collection Type CLEAN CATCH Urine Color COLORLESS Urine Appearance CLEAR Urine pH 6.5 Ur Specific [place] 1.005 Urine Protein NEGATIVE Urine Ketones NEGATIVE Urine Blood NEGATIVE Urine Nitrite NEGATIVE Urine Bilirubin NEGATIVE Urine Urobilinogen NORMAL Ur Leukocyte Esterase NEGATIVE Urine Culture Reflexed NO Urine Glucose NEGATIVE Slides for Path Review Specimen Received 06/29/17 0300 06/29/17 06/29/17 01:20 01:20 WBC 20.0 H Corrected WBC (auto) RBC 4.80 Hgb 11.4 L Hct 38.4 L MCV 80.0 MCH 23.7 L MCHC 29.7 L RDW 19.0 H Plt Count 200 MPV 9.8 H Gran % Lymphocytes % Monocytes % Eosinophils % Basophils % Segmented Neutrophils 50 Band Neutrophils Lymphocytes (Manual) 48 H Monocytes (Manual) 2 Eosinophils (Manual) Basophils (Manual) Basophils # Differential Comment NORMAL Platelet Estimate NORMAL INR APTT Sodium 139 Potassium 3.9 Chloride 105 Carbon Dioxide 26.2 Anion Gap 11.2 BUN 17 Creatinine 1.20 Estimated GFR > 60 Glucose 119 H Calcium 8.7 Magnesium 1.9 Total Bilirubin 0.30 AST 17 ALT 26 Alkaline Phosphatase 55 Troponin I NT-Pro-B Natriuret Pep 2392 H Serum Total Protein 7.3 Albumin 3.1 L Amylase 57 Lipase 201 Ur Collection Type Urine Color Urine Appearance Urine pH Ur Specific [place] Urine Protein Urine Ketones Urine Blood Urine Nitrite Urine Bilirubin Urine Urobilinogen Ur Leukocyte Esterase Urine Culture Reflexed Urine Glucose Slides for Path Review Specimen Received Orders (Last 24 hours) Category Date Time Status Bedrest Activity 06/29/17 04:36 Active Admission/Status Order Care 06/29/17 04:36 Active Corporate Investigator STAT Care 06/29/17 01:26 Completed Code Status Order Care 06/29/17 04:36 Active EKG-ER Only STAT Care 06/29/17 01:25 Completed IV Care Q6H Care 06/29/17 04:36 Active IV Insertion STAT Care 06/29/17 01:25 Completed Intake and Output Q12H Care 06/29/17 04:36 Active Miscellaneous Nursing Order ROUTINE Care 06/29/17 09:29 Active Oxygen-ED Only NASAL CANNULA 2 lpm Care 06/29/17 01:25 Completed Pulse Oximetry (ED) STAT Care 06/29/17 01:25 Completed Telemetry Q12H Care 06/29/17 04:36 Active Vital Signs Q4H Care 06/29/17 04:36 Active Weight,Daily 0600 Care 06/29/17 04:36 Active Consult Cardiology ROUTINE Cons 06/29/17 09:29 Active Cardiac Diet Diet 06/29/17 Breakfast Active CHEST 2 VIEWS (PA AND LAT) Stat Exams 06/29/17 01:25 Completed AMYLASE Stat Lab 06/29/17 01:20 Completed CBC W DIFF Routine Lab 06/29/17 07:00 Completed CBC W DIFF Stat Lab 06/29/17 01:20 Completed CMP Stat Lab 06/29/17 01:20 Completed CMP Urgent Lab 06/29/17 07:30 Completed LIPASE Stat Lab 06/29/17 01:20 Completed MAGNESIUM Stat Lab 06/29/17 01:20 Completed Manual Differential NC Routine Lab 06/29/17 07:00 Completed Manual Differential NC Stat Lab 06/29/17 01:20 Completed NT PRO BNP Stat Lab 06/29/17 01:20 Completed PROTIME WITH INR Stat Lab 06/29/17 01:20 Completed PTT Stat Lab 06/29/17 01:20 Completed TROPONIN Q3H Lab 06/29/17 01:20 Completed TROPONIN Q3H Lab 06/29/17 04:50 Completed TROPONIN Q3H Lab 06/29/17 07:30 Completed TROPONIN Q3H Lab 06/29/17 10:55 Completed TROPONIN Q3H Lab 06/29/17 13:30 Ordered UA W/RFX UR CULTURE Stat Lab 06/29/17 03:00 Completed Acetaminophen 325 mg [Tylenol 325 mg] Med 06/29/17 04:36 Active 650 mg PO Q4H PRN PRN Alprazolam 1 mg [Xanax 1 mg] Med 06/29/17 10:00 Active 1 mg PO TID Amiodarone HCl 200 mg [Cordarone 200 MG] Med 06/29/17 10:00 Active 400 mg PO DAILY Apixaban [Eliquis] Med 06/29/17 10:00 Active 5 mg PO BID Aspirin 81 gm Chew [Baby Aspirin 81 mg Chew] Med 06/29/17 01:31 Discontinued 324 mg .ROUTE .STK-MED ONE Aspirin 81 gm Chew [Baby Aspirin 81 mg Chew] Med 06/29/17 01:25 Discontinued 324 mg PO STAT ONE Famotidine 20 mg [Pepcid 20 MG] Med 06/29/17 10:00 Active 20 mg PO BID Fentanyl Citrate 100 Mcg/2 ml* [Sublimaze 100 Mcg/2 ml* Med 06/29/17 02:58 Discontinued ] 100 mcg .ROUTE .STK-MED ONE Fentanyl Citrate 100 Mcg/2 ml* [Sublimaze 100 Mcg/2 ml* Med 06/29/17 04:36 Active ] 25 mcg IV Q4H PRN PRN Fentanyl Citrate 100 Mcg/2 ml* [Sublimaze 100 Mcg/2 ml* Med 06/29/17 02:52 Discontinued ] 50 mcg IV STAT ONE Furosemide 40 mg/4 ml [Lasix 40 MG/4 ML] Med 06/29/17 01:31 Discontinued 40 mg .ROUTE .STK-MED ONE Furosemide 40 mg/4 ml [Lasix 40 MG/4 ML] Med 06/29/17 01:25 Discontinued 40 mg IV STAT ONE Lisinopril 5 mg [Zestril 5 MG] Med 06/29/17 10:00 Active 5 mg PO DAILY Medication Intervention Med 06/29/17 10:18 Active 1 each MC UD PRN Metoprolol Succinate 25 mg Xl* [Toprol-Xl 25MG Tablets* Med 06/29/17 10:00 Active ] 25 mg PO DAILY NaCl 0.9% 1000 ml [Sodium Chloride 0.9% 1000 ML] 1,000 Med 06/29/17 01:30 Discontinued ml IV 100 mls/hr NaCl 0.9% 1000 ml [Sodium Chloride 0.9% 1000 ML] 1,000 Med 06/29/17 04:36 Active ml IV 50 mls/hr Nitroglycerin 0.4 mg Tablet [Nitrostat 0.4 MG Tablet Med 06/29/17 04:36 Active ] 0.4 mg SL Q5MIN PRN MR X 3 PRN Promethazine HCl 25 mg Amp [Phenergan 25 MG INJ] Med 06/29/17 04:36 Active 12.5 mg IV Q6H PRN PRN Promethazine HCl 25 mg Amp [Phenergan 25 MG INJ] Med 06/29/17 02:52 Discontinued 12.5 mg IV STAT ONE Promethazine HCl 25 mg Amp [Phenergan 25 MG INJ] Med 06/29/17 02:57 Discontinued 25 mg .ROUTE .STK-MED ONE Tamsulosin HCl 0.4 mg [Flomax 0.4 MG] Med 06/29/17 10:00 Active 0.4 mg PO DAILY EKG ROUTINE RT 06/29/17 08:00 Active Oxygen NASAL CANNULA 2 lpm RT 06/29/17 04:36 Active Pulse Oximetry RT 06/29/17 04:36 Active Transfer Order Routine Transfer 06/29/17 Completed Patient Care Notes (Last 24 hours) 06/29/17 09:26 Nursing Note by Zulema Argueta see medsurg assessment, Dr. Goddard called for update, see new orders for home meds, tele-cardiology with Dr. Miranda, and to contact [email or web address] that manages [employer]. Initialized on 06/29/17 09:26 - END OF NOTE 06/29/17 08:02 Nursing Note by Zulema Argueta see medsurg assessment, pt c/o chronic back pain, see MAR, given phenergan per pt request also. Initialized on 06/29/17 08:02 - END OF NOTE - Vitals & Intake/Output Vital Signs: Vital Signs Temperature 97.8 F 06/29/17 11:12 Pulse Rate 71 06/29/17 11:12 Respiratory Rate 20 06/29/17 11:12 Blood Pressure 135/64 06/29/17 11:12 O2 Sat by Pulse Oximetry 96 06/29/17 11:12 Oxygen-Last Documented O2 Percentage 3 Liters = 32% Intake & Output: Intake & Output 06/27/17 06/28/17 06/29/17 06/30/17 11:59 11:59 11:59 11:59 Intake Total 240 Output Total 700 Balance -460 Weight 108 kg - Lab Result Diagrams: 06/29/17 07:00 06/29/17 07:30 Lab Results-Last 24 Hrs: Lab Results-Last 24 Hours 06/29/17 06/29/17 06/29/17 Range/Units 04:50 07:00 07:30 WBC 20.7 H (4.0-10.5) K/mm3 Corrected WBC (auto) RBC 5.00 (4.1-5.6) M/mm3 Hgb 11.9 L (12.5-18.0) gm/dl Hct 39.9 L (42-50) % MCV 79.8 (78-100) fl MCH 23.8 L (26-32) pg MCHC 29.8 L (32-36) g/dl RDW 19.2 H (11.5-14.0) % Plt Count 192 (150-450) K/mm3 MPV 9.3 (6-9.5) fl Gran % Lymphocytes % Monocytes % Eosinophils % Basophils % Segmented Neutrophils 29 L (36.-66.) % Band Neutrophils 1 (0.0-2.0) % Lymphocytes (Manual) 60 H (24-44) % Monocytes (Manual) 7 (0.0-12.0) % Eosinophils (Manual) 2 (0.00-3.0) % Basophils (Manual) 1 (0.0-1.0) % Basophils # Differential Comment NORMAL Platelet Estimate NORMAL (NORMAL) Sodium (136-145) mEq/L Potassium (3.5-5.1) mEq/L Chloride (98-107) mEq/L Carbon Dioxide (21-32) mEq/L Anion Gap (5-15) MEQ/L BUN (9-20) mg/dL Creatinine (0.55-1.30) mg/dl Estimated GFR ML/MIN Glucose (70-110) MG/DL Calcium (8.5-10.1) mg/dL Total Bilirubin (0.2-1.0) mg/dL AST (15-37) U/L ALT (12-78) U/L Alkaline Phosphatase (46-116) U/L Troponin I 0.019 0.017 (0.000-0.056) ng/ml Serum Total Protein (6.4-8.2) gm/dL Albumin (3.4-5.0) g/dL Slides for Path Review 06/29/17 06/29/17 06/29/17 Range/Units 07:30 07:30 10:55 WBC Cancelled (4.0-10.5) K/mm3 Corrected WBC (auto) Cancelled RBC Cancelled (4.1-5.6) M/mm3 Hgb Cancelled (12.5-18.0) gm/dl Hct Cancelled (42-50) % MCV Cancelled (78-100) fl MCH Cancelled (26-32) pg MCHC Cancelled (32-36) g/dl RDW Cancelled (11.5-14.0) % Plt Count Cancelled (150-450) K/mm3 MPV Cancelled (6-9.5) fl Gran % Cancelled Lymphocytes % Cancelled Monocytes % Cancelled Eosinophils % Cancelled Basophils % Cancelled Segmented Neutrophils (36.-66.) % Band Neutrophils (0.0-2.0) % Lymphocytes (Manual) (24-44) % Monocytes (Manual) (0.0-12.0) % Eosinophils (Manual) (0.00-3.0) % Basophils (Manual) (0.0-1.0) % Basophils # Cancelled Differential Comment Platelet Estimate (NORMAL) Sodium 141 (136-145) mEq/L Potassium 4.3 (3.5-5.1) mEq/L Chloride 104 (98-107) mEq/L Carbon Dioxide 27.1 (21-32) mEq/L Anion Gap 14.6 (5-15) MEQ/L BUN 14 (9-20) mg/dL Creatinine 1.18 (0.55-1.30) mg/dl Estimated GFR > 60 ML/MIN Glucose 105 (70-110) MG/DL Calcium 8.9 (8.5-10.1) mg/dL Total Bilirubin 0.40 (0.2-1.0) mg/dL AST 19 (15-37) U/L ALT 27 (12-78) U/L Alkaline Phosphatase 52 (46-116) U/L Troponin I 0.019 (0.000-0.056) ng/ml Serum Total Protein 7.4 (6.4-8.2) gm/dL Albumin 3.1 L (3.4-5.0) g/dL Slides for Path Review Cancelled - Discharge Discharge Date: 06/29/17 Disposition: Home, Self-Care Condition: Stable Prescriptions: No Action Lisinopril 5 mg [Zestril 5 MG] 5 mg PO DAILY Alprazolam 1 mg PO TID Famotidine 20 mg [Pepcid 20 MG] 20 mg PO BID Tamsulosin HCl 0.4 mg PO DAILY Piroxicam [Feldene] 10 mg PO BID Apixaban [Eliquis] 5 mg PO BID Amiodarone HCl [Pacerone] 400 mg PO DAILY Metoprolol Succinate 25 mg Xl* [Toprol-Xl 25MG Tablets] 25 mg PO DAILY Follow up with: MARYCRUZ ARAUJO MD [CONSULTING PHYSICIAN] - 1 Week SHIMON GODDARD MD [Primary Care Provider] -
[2017-06-29] MEDS ORDERED: solu-CORTEF 250MG IV SCH (13:15)
[2017-06-29] MEDS ORDERED: PIROXICAM 10 MG PO SCH (22:00)
[2017-06-30] MEDS: SUBLIMAZE 100 MCG/2 ML IV PRN ×2 (02:25→09:08)
[2017-06-30] MEDS: Toprol-Xl 25MG Tablets PO SCH (09:11)
[2017-06-30] MEDS: Flomax 0.4 MG PO SCH (09:11)
[2017-06-30] MEDS: Pepcid 20 MG PO SCH (09:13)
[2017-06-30] MEDS: Zestril 5 MG PO SCH (09:13)
[2017-06-30] MEDS: ELIQUIS PO SCH (09:13)
[2017-06-30] MEDS: Cordarone 200 MG PO SCH (09:13)
[2017-06-30] MEDS: XANAX 1 MG PO SCH (09:13)
[2017-06-30] MEDS ORDERED: AMIODARONE HCL 400 MG PO SCH (10:00)
[2017-06-30 12:34] VITALS: BP 128/95; PULSE 82; O2SAT 94
== END 2017-06-30 12:45 | disposition home or self-care (01) ==
LOC: ED 01:06 → MED SURG 04:21
PROVIDERS: ADMIT General Practice; ATTEND General Practice
DX: T82.897A Other specified complication of cardiac prosthetic devices, implants and grafts, initial encounter (principal); R07.9 Chest pain, unspecified; M51.36 Other intervertebral disc degeneration, lumbar region; Z79.01 Long term (current) use of anticoagulants; Z79.899 Other long term (current) drug therapy
CPT/HCPCS: 36000; 36415; 71046; 80053; 81002; 82150; 83690; 83735; 83880; 84484; 85025; 85610; 85730; 93005; 93041; 93268; 94760; 99285; G0378; J1720; J1940; J2550; J3010; A9270-GY

== ENCOUNTER 2017-09-23 14:54 | Observation (INO) | payer MEDICARE ==
[2017-09-23] MEDS ORDERED: MORPHINE SULFATE 2 MG INJ IV PRN (16:33)
[2017-09-23] MEDS ORDERED: Sodium Chloride 0.9% 1000 ML 1,000 ML IV SCH (16:45)
[2017-09-23 16:56] LABS: Hematocrit 37.9 % (42-50); Hemoglobin 11.6 gm/dl (12.5-18.0); Mean Cell Volume 81.3 fl (78-100); Mean Corpuscular Hemoglobin 24.8 pg (26-32); Mean Corpuscular Hgb Concent. 30.6 g/dl (32-36); Mean Platelet Volume 9.9 fl (6-9.5); Platelet Count 184 K/mm3 (150-450); Red Blood Count 4.66 M/mm3 (4.1-5.6); Red Cell Distribution Width 20.3 % (11.5-14.0); White Blood Count 17.2 K/mm3 (4.0-10.5)
--- NOTE | 2017-09-23 17:04 | XRAY ---
Indication: Short of breath. Comparison: June 29, 2017. PA/lateral chest remains clear. Heart is not enlarged again with CABG surgery and right-sided pacemaker/leads. Bony thorax intact again with mild osteopenia and degenerative changes. Impression: Stable nonacute chest with chronic features.
[2017-09-23 17:16] LABS: ALBUMIN 3.7 g/dL (3.5-5.0); ALKALINE PHOSPHATASE 54 U/L (38-126); ANION GAP 14.9 MEQ/L (5-15); BLOOD UREA NITROGEN 24 mg/dL (9-20); CHLORIDE 105 mmol/L (98-107); Carbon Dioxide 22 mmol/L (22-30); Glucose 103 mg/dL (74-106); Potassium 4.7 mmol/L (3.5-5.1); SGOT/AST 21 U/L (17-59); SGPT/ALT 23 U/L (0-50); SODIUM 137 mmol/L (137-145); Total Protein 6.9 g/dL (6.3-8.2)
[2017-09-23 17:25] LABS: NT PRO BNP 4140 pg/mL (0-900)
[2017-09-23] MEDS ORDERED: MEDICATION INTERVENTION MC SCH (17:30)
[2017-09-23] MEDS ORDERED: Zofran 4 MG/2 ML VIAL IV PRN (19:42)
[2017-09-23] MEDS: NORCO 5/325 MG PO PRN (19:49)
[2017-09-23] MEDS: ENTRESTO 49 MG-51 MG TABLET PO SCH (21:26)
[2017-09-23] MEDS: Pepcid 20 MG PO SCH (21:26)
[2017-09-23] MEDS: xanAX 0.5 MG PO SCH (21:27)
[2017-09-23] MEDS: ELIQUIS 5 MG TABLET PO SCH (21:27)
[2017-09-23] MEDS: COREG 12.5 MG PO SCH (21:35)
[2017-09-23] MEDS ORDERED: PIROXICAM 10 MG PO SCH (22:00)
[2017-09-24] MEDS: NORCO 5/325 MG PO PRN ×4 (00:16→21:11)
[2017-09-24] MEDS: Toprol-Xl 25MG Tablets PO SCH (08:03)
[2017-09-24] MEDS: Aldactone 25 MG PO SCH (08:03)
[2017-09-24] MEDS: Zestril 5 MG PO SCH (08:03)
[2017-09-24] MEDS: Flomax 0.4 MG PO SCH (08:03)
[2017-09-24] MEDS: ELIQUIS 5 MG TABLET PO SCH ×2 (08:04→21:00)
[2017-09-24] MEDS: xanAX 0.5 MG PO SCH ×3 (08:04→21:00)
[2017-09-24] MEDS: Pepcid 20 MG PO SCH ×2 (08:04→21:00)
[2017-09-24] MEDS: COREG 12.5 MG PO SCH ×2 (08:04→21:00)
[2017-09-24] MEDS: ENTRESTO 49 MG-51 MG TABLET PO SCH ×2 (08:04→21:01)
[2017-09-24] MEDS: Cordarone 200 MG PO SCH ×2 (08:24→21:00)
[2017-09-24] MEDS ORDERED: Cordarone 200 MG PO SCH (10:00)
[2017-09-24] MEDS ORDERED: NON-FORMULARY ITEM (Sacubitril/Valsartan [Entresto 24 Mg-26 Mg Tablet] 1 TAB) PO SCH (10:00)
[2017-09-24] MEDS ORDERED: AMIODARONE HCL 400 MG PO SCH (10:00)
[2017-09-24] MEDS ORDERED: TORAdol 30 mg Injection IV PRN (10:10)
--- NOTE | 2017-09-24 10:10 | PCM.HP.ADD ---
Addendum to History & Physical - History & Physical Addendum Addendum to History & Physical: This certifies that the History & Physical in the electronic chart reflects the current health status of the patient. If there are changes in the H&P these changes/exceptions are listed as follows.
--- NOTE | 2017-09-24 10:12 | PCM.NOTE ---
Date and Time: 09/24/17 1010 Subjective Assessment: doing ok, c/o back pain - Review of Systems Constitutional: No Fever, No Chills Eyes: No Symptoms Ears, Nose, & Throat: No Symptoms Respiratory: No Cough, No Short Of Breath Cardiac: No Chest Pain, No Edema, No Syncope Abdominal/Gastrointestinal: No Abdominal Pain, No Nausea, No Vomiting, No Diarrhea Genitourinary Symptoms: No Dysuria Musculoskeletal: Back Pain, No Neck Pain Skin: No Rash Neurological: No Dizziness, No Focal Weakness, No Sensory Changes Psychological: No Symptoms Endocrine: No Symptoms Hematologic/Lymphatic: No Symptoms Immunological/Allergic: No Symptoms Objective Exam General Appearance: no apparent distress, alert Neurologic Exam: alert, oriented x 3, cooperative, normal mood/affect, nml cerebellar function, sensation nml, No motor deficits Skin Exam: normal color, warm, dry Eye Exam: PERRL, EOMI, eyes nml inspection Ears, Nose, Throat Exam: normal ENT inspection, pharynx normal, moist mucous membranes Neck Exam: normal inspection, non-tender, supple, full range of motion Respiratory Exam: normal breath sounds, lungs clear, No respiratory distress Cardiovascular Exam: regular rate/rhythm, normal heart sounds Gastrointestinal/Abdomen Exam: soft, No tenderness, No mass Extremity Exam: normal inspection, normal range of motion Back Exam: normal inspection, normal range of motion, No CVA tenderness, No vertebral tenderness Male Genitalia Exam: deferred Rectal Exam: deferred OBJECTIVE DATA Vital Signs: Vital Signs - 24 hr Temp Pulse Resp BP Pulse Ox 09/24/17 07:01 97.8 F 73 18 89/52 96 09/24/17 04:00 97.7 F 75 18 96/54 98 09/24/17 00:00 98.0 F 73 19 105/55 94 L 09/23/17 20:00 97.6 F 83 19 152/74 98 09/23/17 15:40 97.8 F 75 22 137/65 97 09/23/17 15:10 97.8 F 75 22 137/65 75 L Pain Assessment - Last Documented Pain Intensity 6 Pain Scale Used 0-10 Pain Scale Intake and Output: Intake & Output 09/21/17 09/22/17 09/23/17 09/24/17 11:59 11:59 11:59 11:59 Intake Total 1258 Output Total 800 Balance 458 Weight 104.2 kg Lab Results: Lab Results-Last 24 Hours 09/23/17 09/23/17 09/23/17 Range/Units 16:35 16:35 16:35 WBC 17.2 H (4.0-10.5) K/mm3 RBC 4.66 (4.1-5.6) M/mm3 Hgb 11.6 L (12.5-18.0) gm/dl Hct 37.9 L (42-50) % MCV 81.3 (78-100) fl MCH 24.8 L (26-32) pg MCHC 30.6 L (32-36) g/dl RDW 20.3 H (11.5-14.0) % Plt Count 184 (150-450) K/mm3 MPV 9.9 H (6-9.5) fl Sodium 137 (137-145) mmol/L Potassium 4.7 (3.5-5.1) mmol/L Chloride 105 (98-107) mmol/L Carbon Dioxide 22 (22-30) mmol/L Anion Gap 14.9 (5-15) MEQ/L BUN 24 H (9-20) mg/dL Creatinine 1.10 (0.66-1.25) mg/dL Estimated GFR > 60.0 ML/MIN Glucose 103 (74-106) mg/dL Calcium 9.0 (8.4-10.2) mg/dL Total Bilirubin 0.30 (0.2-1.3) mg/dL AST 21 (17-59) U/L ALT 23 (0-50) U/L Alkaline Phosphatase 54 (38-126) U/L Troponin I < 0.012 (0.000-0.034) ng/mL NT-Pro-B Natriuret Pep 4140 H (0-900) pg/mL Serum Total Protein 6.9 (6.3-8.2) g/dL Albumin 3.7 (3.5-5.0) g/dL 09/23/17 09/23/17 Range/Units 20:03 22:47 WBC (4.0-10.5) K/mm3 RBC (4.1-5.6) M/mm3 Hgb (12.5-18.0) gm/dl Hct (42-50) % MCV (78-100) fl MCH (26-32) pg MCHC (32-36) g/dl RDW (11.5-14.0) % Plt Count (150-450) K/mm3 MPV (6-9.5) fl Sodium (137-145) mmol/L Potassium (3.5-5.1) mmol/L Chloride (98-107) mmol/L Carbon Dioxide (22-30) mmol/L Anion Gap (5-15) MEQ/L BUN (9-20) mg/dL Creatinine (0.66-1.25) mg/dL Estimated GFR ML/MIN Glucose (74-106) mg/dL Calcium (8.4-10.2) mg/dL Total Bilirubin (0.2-1.3) mg/dL AST (17-59) U/L ALT (0-50) U/L Alkaline Phosphatase (38-126) U/L Troponin I < 0.012 < 0.012 (0.000-0.034) ng/mL NT-Pro-B Natriuret Pep (0-900) pg/mL Serum Total Protein (6.3-8.2) g/dL Albumin (3.5-5.0) g/dL Radiology Exams: Radiology Procedures Category Date Time Status CHEST 2 VIEWS (PA AND LAT) Urgent Exams 09/23/17 16:56 Completed Assessment/Plan (1) Leukocytosis (leucocytosis) Current Visit: Yes Status: Acute Code(s): D72.829 - ELEVATED WHITE BLOOD CELL COUNT, UNSPECIFIED (2) Atrial fibrillation Current Visit: Yes Status: Acute Onset Date: ~09/23/17 Code(s): I48.91 - UNSPECIFIED ATRIAL FIBRILLATION (3) Cardiac pacemaker Current Visit: No Status: Chronic Code(s): Z95.0 - PRESENCE OF CARDIAC PACEMAKER (4) Coronary arteriosclerosis Current Visit: No Status: Chronic Code(s): I25.10 - ATHSCL HEART DISEASE OF [place] CORONARY ARTERY W/O ANG PCTRS (5) Coronary artery bypass with autogenous graft, three grafts Current Visit: No Status: Chronic (6) Degenerative disc disease at L5-S1 level Current Visit: No Status: Chronic Code(s): M51.36 - OTHER INTERVERTEBRAL DISC DEGENERATION, LUMBAR REGION
[2017-09-24] MEDS ORDERED: XYLOCAINE 1% HCL 20 ML MDV IJ PRN (10:49)
[2017-09-24] MEDS ORDERED: TORAdol 30 mg Injection IM PRN (10:50)
[2017-09-24] MEDS: Rocephin 1000 MG INJ IM SCH (11:16)
[2017-09-24] MEDS: ROCEPHIN 1 Gm-D5w 50 ml Bag** 1 G/50 ML IVPB IV SCH (11:16)
[2017-09-24] MEDS ORDERED: Zofran 4 MG/2 ML VIAL IM PRN (21:16)
[2017-09-25 07:26] VITALS: BP 80/50; PULSE 78; O2SAT 94
[2017-09-25] MEDS: Rocephin 1000 MG INJ IM SCH (08:06)
[2017-09-25] MEDS: ROCEPHIN 1 Gm-D5w 50 ml Bag** 1 G/50 ML IVPB IV SCH (08:16)
[2017-09-25] MEDS: Flomax 0.4 MG PO SCH (08:18)
[2017-09-25] MEDS: Aldactone 25 MG PO SCH (08:19)
[2017-09-25] MEDS: Pepcid 20 MG PO SCH (08:19)
[2017-09-25] MEDS: ELIQUIS 5 MG TABLET PO SCH (08:19)
[2017-09-25] MEDS: Cordarone 200 MG PO SCH (08:19)
[2017-09-25] MEDS: COREG 12.5 MG PO SCH (08:19)
[2017-09-25] MEDS: Toprol-Xl 25MG Tablets PO SCH (08:19)
[2017-09-25] MEDS: Zestril 5 MG PO SCH (08:20)
[2017-09-25] MEDS: ENTRESTO 49 MG-51 MG TABLET PO SCH (08:20)
[2017-09-25] MEDS: xanAX 0.5 MG PO SCH (08:20)
--- NOTE | 2017-09-25 20:22 | PCM.DS ---
Discharge Summary Date of Admission: 09/23/17 14:56 Admitting Physician: SHIMON GODDARD Primary Care Provider: SHIMON GODDARD Allergies Allergies No Known Drug Allergies Allergy (Unverified 06/29/17 01:08) Hospital Summary - Hospital Course Hospital Course: Chief Complaint Diagnosis paroxysmal atrial fibrillation Allergies Allergy/AdvReac Type Severity Reaction Status Date / Time No Known Drug Allergies Allergy Unverified 06/29/17 01:08 Vital Signs (Last 24 hours) Temp Pulse Resp BP Pulse Ox 09/25/17 07:25 97.6 F 78 20 80/50 94 L 09/25/17 04:00 97.9 F 73 20 96/47 96 09/25/17 00:00 98.4 F 70 19 99/52 98 Home Medications Medication Instructions Recorded Confirmed Last Taken Type Carvedilol 12.5 mg [Coreg 12.5 25 mg PO BID 09/23/17 09/23/17 Unknown History mg] Sacubitril/Valsartan [Entresto 24 1 tab PO DAILY 09/23/17 09/23/17 Unknown History mg-26 mg Tablet] Spironolactone 12.5 mg PO DAILY 09/23/17 09/23/17 Unknown History Cephalexin Monohydrate [Cephalexin] 500 mg PO QID 7 Days #28 capsule 09/25/17 Unknown Rx Current Medications Discontinued Medications Generic Name Dose Route Start Last Admin Trade Name Freq PRN Reason Stop Dose Admin Hydrocodone Bitart/Acetaminophen 1 tab 09/23/17 19:42 09/24/17 21:11 [place] 5/325 Mg PO 09/28/17 19:41 1 tab Q4H PRN PRN Administration PAIN Alprazolam 1 mg 09/23/17 22:00 09/25/17 08:20 Xanax 0.5 Mg PO 10/23/17 21:59 1 mg TID BELL Administration Amiodarone HCl 400 mg 09/24/17 10:00 09/24/17 08:13 Cordarone 200 Mg PO 10/24/17 09:59 200 mg DAILY BELL Administration Amiodarone HCl 200 mg 09/24/17 10:00 09/25/17 08:19 Cordarone 200 Mg PO 10/24/17 09:59 200 mg BID BELL Administration Apixaban 5 mg 09/23/17 22:00 09/25/17 08:19 Eliquis 5 Mg Tablet PO 10/23/17 21:59 5 mg BID BELL Administration Carvedilol 25 mg 09/23/17 22:00 09/25/17 08:19 Coreg 12.5 Mg PO 10/23/17 21:59 25 mg BID BELL Administration Ceftriaxone Sodium 1,000 mg 09/24/17 11:00 09/25/17 08:06 Rocephin 1000 Mg Inj IM 10/24/17 10:59 1,000 mg DAILY BELL Administration Famotidine 20 mg 09/23/17 22:00 09/25/17 08:19 Pepcid 20 Mg PO 10/23/17 21:59 20 mg BID BELL Administration Sodium Chloride 1,000 mls @ 30 mls/hr 09/23/17 16:45 09/23/17 16:54 Sodium Chloride 0.9% 1000 Ml IV 10/23/17 16:44 30 mls/hr .Q24H BELL Administration Ceftriaxone Sodium/Dextrose 1 g in 50 mls @ 100 mls/hr 09/24/17 10:00 08:16 Rocephin 1 Gm-D5w 50 Ml Bag IV 10/24/17 09:59 Not Given Q24H10 BELL Ketorolac Tromethamine 15 mg 09/24/17 10:10 Toradol 30 Mg Injection IV 09/29/17 10:09 Q6H PRN PRN PAIN Ketorolac Tromethamine 15 mg 09/24/17 10:50 09/24/17 11:17 Toradol 30 Mg Injection IM 09/29/17 10:49 15 mg Q6H PRN PRN Administration PAIN Lidocaine HCl 2.1 ml 09/24/17 10:49 Xylocaine 1% Hcl 20 Ml Mdv IJ 10/24/17 10:48 PRN PRN Lisinopril 5 mg 09/24/17 10:00 09/25/17 08:20 Zestril 5 Mg PO 10/24/17 09:59 5 mg DAILY BELL Administration Metoprolol Succinate 25 mg 09/24/17 10:00 05/06/18 08:19 Toprol-Xl 25mg Tablets PO 10/24/17 09:59 25 mg DAILY BELL Administration Morphine Sulfate 2 mg 09/23/17 16:33 09/23/17 16:54 Morphine Sulfate 2 Mg Inj IV 09/28/17 16:32 2 mg Q4H PRN PRN Administration PAIN Ondansetron HCl 4 mg 09/23/17 19:42 09/23/17 19:50 Zofran 4 Mg/2 Ml Vial IV 10/23/17 19:41 4 mg Q6H PRN PRN Administration NAUSEA/VOMITING Ondansetron HCl 4 mg 09/24/17 21:16 09/24/17 21:20 Zofran 4 Mg/2 Ml Vial IM 10/24/17 21:15 4 mg Q6H PRN PRN Administration NAUSEA/VOMITING Spironolactone 12.5 mg 09/24/17 10:00 09/25/17 08:19 Aldactone 25 Mg PO 10/24/17 09:59 12.5 mg DAILY BELL Administration Tamsulosin HCl 0.4 mg 09/24/17 10:00 09/25/17 08:18 Flomax 0.4 Mg PO 10/24/17 09:59 0.4 mg DAILY BELL Administration Intake & Output (Last 24 hours) 09/23/17 09/24/17 09/25/17 09/26/17 11:59 11:59 11:59 11:59 Intake Total 1258 2400 Output Total 800 Balance 458 2400 Weight 104.2 kg Orders (Last 24 hours) Category Date Time Status Discharge Routine Discharge 09/25/17 07:56 Ordered Ondansetron HCl 4 mg/2 ml [Zofran 4 MG/2 ML VIAL] Med 09/24/17 21:16 Discontinued 4 mg IM Q6H PRN PRN Patient Care Notes (Last 24 hours) 09/25/17 08:25 Nursing Note by Shannon Green Pt given d/c instructions and prescription info as well as new medication list. Denies questions or concerns. Pt taken out per wheelchair per PROGRAM ARCHITECT to personal vehicle. Initialized on 09/25/17 08:25 - END OF NOTE - Vitals & Intake/Output Vital Signs: Vital Signs Temperature 97.6 F 09/25/17 07:25 Pulse Rate 78 09/25/17 07:25 Respiratory Rate 20 09/25/17 07:25 Blood Pressure 80/50 09/25/17 07:25 O2 Sat by Pulse Oximetry 94 L 09/25/17 07:25 Intake & Output: Intake & Output 09/23/17 09/24/17 09/25/17 09/26/17 11:59 11:59 11:59 11:59 Intake Total 1258 2400 Output Total 800 Balance 458 2400 Weight 104.2 kg - Lab Result Diagrams: 09/23/17 16:35 09/23/17 16:35 - Procedures and Test Procedures and Tests throughout Hospitalization: Therapy Orders & Screens 09/23/17 16:34 EKG ROUTINE Comment: Diagnosis: paroxysmal atrial fibrillation Discharge Exam General Appearance: no apparent distress, alert Neurologic Exam: alert, oriented x 3, cooperative, normal mood/affect, nml cerebellar function, sensation nml, No motor deficits Skin Exam: normal color, warm, dry Eye Exam: PERRL, EOMI, eyes nml inspection Ears, Nose, Throat Exam: normal ENT inspection, pharynx normal, moist mucous membranes Neck Exam: normal inspection, non-tender, supple, full range of motion Respiratory Exam: normal breath sounds, lungs clear, No respiratory distress Cardiovascular Exam: regular rate/rhythm, normal heart sounds Gastrointestinal/Abdomen Exam: soft, No tenderness, No mass Extremity Exam: normal inspection, normal range of motion Back Exam: normal inspection, normal range of motion, No CVA tenderness, No vertebral tenderness Male Genitalia Exam: deferred Rectal Exam: deferred Final Diagnosis/Problem List - Final Discharge Diagnosis/Problem (1) Leukocytosis (leucocytosis) Status: Resolved (2) Atrial fibrillation Status: Chronic Onset Date: ~09/23/17 (3) Cardiac pacemaker Status: Chronic (4) Coronary arteriosclerosis Status: Chronic (5) Coronary artery bypass with autogenous graft, three grafts Status: Chronic (6) Degenerative disc disease at L5-S1 level Status: Chronic - Discharge Discharge Date: 09/25/17 Disposition: Home, Self-Care Condition: Stable Prescriptions: New Cephalexin Monohydrate [Cephalexin] 500 mg PO QID 7 Days #28 capsule Continue Lisinopril 5 mg [Zestril 5 MG] 5 mg PO DAILY Alprazolam 1 mg PO TID Famotidine 20 mg [Pepcid 20 MG] 20 mg PO BID Tamsulosin HCl 0.4 mg PO DAILY Piroxicam [Feldene] 10 mg PO BID Apixaban [Eliquis 5 mg Tablet] 5 mg PO BID Amiodarone HCl [Pacerone] 200 mg PO BID Metoprolol Succinate 25 mg Xl* [Toprol-Xl 25MG Tablets] 25 mg PO DAILY Spironolactone 12.5 mg PO DAILY Sacubitril/Valsartan [Entresto 24 mg-26 mg Tablet] 1 tab PO DAILY Carvedilol 12.5 mg [Coreg 12.5 mg] 25 mg PO BID Instructions: Sciatica, Low Back Pain in Adults, Prostatitis Follow up with: SHIMON GODDARD MD [Primary Care Provider] - Call for Appointment Forms: Discharge Instructions, Patient Portal Information
== END 2017-09-25 08:25 | disposition home or self-care (01) ==
LOC: MED SURG 14:56
PROVIDERS: ADMIT General Practice; ATTEND General Practice
DX: D72.829 Elevated white blood cell count, unspecified (principal); I48.0 Paroxysmal atrial fibrillation; Z95.0 Presence of cardiac pacemaker; I10 Essential (primary) hypertension; I25.810 Atherosclerosis of coronary artery bypass graft(s) without angina pectoris; J44.9 Chronic obstructive pulmonary disease, unspecified; Z79.01 Long term (current) use of anticoagulants; M51.37 Other intervertebral disc degeneration, lumbosacral region; Z79.899 Other long term (current) drug therapy; M19.90 Unspecified osteoarthritis, unspecified site
CPT/HCPCS: 36415; 71046; 80053; 83880; 84484; 85027; 93005; 93268; J0696; J1885; J2270; J2405; A9270-GY; G0378

== ENCOUNTER 2017-09-28 14:45 | Emergency (ER) | payer MEDICARE ==
[2017-09-28] MEDS ORDERED: Sodium Chloride 0.9% 1000 ML 1,000 ML IV SCH (15:00)
[2017-09-28] MEDS ORDERED: BABY ASPIRIN 81 MG CHEW PO ONE (15:02)
--- NOTE | 2017-09-28 15:02 | ERPHSYRPT ---
- History of Present Illness Time Seen by Provider: 09/28/17 14:50 Historian: patient Exam Limitations: clinical condition Physician History: PATIENT WITH A HISTORY OF HYPERTENSION, CORONARY ARTERY DISEASE, ATRIAL FIBRILLATION, PACEMAKER DEFIBRILLATOR COMPLAINS OF DEFIBRILLATOR FIRING LAST WEEK AND TODAY 90 MINUTES PRIOR TO ARRIVAL TO EMERGENCY ASSOCIATED WITH HEAVINESS ONTO HIS CHEST PAIN SCALE 8/10. ADMITS TO TAKING 1 BABY ASPIRIN AND NITROGLYCERIN 0.4MG. STATES PAIN DISCOMFORT HAS IMPROVED TO A 4/10 HAS ASSOCIATED WITH PALPITATIONS AND RADIATION TO BOTH SHOULDER. DENIES DYSPNEA OR DIAPHORESIS. Timing/Duration: today Activities at Onset: none Quality: pressure Location: substernal Chest Pain Radiation: arm Severity of Pain-Max: severe Severity of Pain-Current: mild Modifying Factors: Improves With: nitroglycerin Associated Symptoms: palpitations Prior Chest Pain/Cardiac Workup: heart attack Nitro Today/Relief: 0.4 mg x 1, provided at home Aspirin Treatment Today: 81 mg x 1, provided at home Allergies/Adverse Reactions: No Known Drug Allergies Allergy (Verified 09/28/17 15:08) Home Medications: Alprazolam 1 mg PO TID 12/24/14 [History] Famotidine 20 mg [Pepcid 20 MG] 20 mg PO BID 12/24/14 [History] Lisinopril 5 mg [Zestril 5 MG] 5 mg PO DAILY 12/24/14 [History] Tamsulosin HCl 0.4 mg PO DAILY 07/16/15 [History] Piroxicam [Feldene] 10 mg PO BID 09/20/15 [History] Apixaban [Eliquis 5 mg Tablet] 5 mg PO BID 01/21/16 [History] Amiodarone HCl [Pacerone] 200 mg PO BID 07/10/16 [History] Metoprolol Succinate 25 mg Xl* [Toprol-Xl 25MG Tablets] 25 mg PO DAILY [History] Carvedilol 12.5 mg [Coreg 12.5 mg] 25 mg PO BID 09/23/17 [History] Sacubitril/Valsartan [Entresto 24 mg-26 mg Tablet] 1 tab PO DAILY 09/23/17 [ History] Spironolactone 12.5 mg PO DAILY 09/23/17 [History] Hx Tetanus, Diphtheria Vaccination/Date Given: Yes Hx Influenza Vaccination/Date Given: Yes Hx Pneumococcal Vaccination/Date Given: Yes - Review of Systems Constitutional: No Fever, No Chills Eyes: No Symptoms Ears, Nose, & Throat: No Symptoms Respiratory: No Cough, No Dyspnea Cardiac: Chest Pain, Other (DEFIBRILLATOR FIRING), No Edema, No Syncope Abdominal/Gastrointestinal: No Symptoms, No Abdominal Pain, No Nausea, No Vomiting, No Diarrhea Genitourinary Symptoms: No Symptoms, No Dysuria Musculoskeletal: No Symptoms, No Back Pain, No Neck Pain Skin: No Symptoms, No Rash Neurological: No Dizziness, No Focal Weakness, No Sensory Changes Psychological: No Symptoms Endocrine: No Symptoms All Other Systems: Reviewed and Negative - Past Medical History Pertinent Past Medical History: Yes Neurological History: No Pertinent History ENT History: No Pertinent History Cardiac History: Arrhythmia, Coronary Artery Disease, High Cholesterol, Hypertension, Myocardial Infarction ([place]), Other Respiratory History: No Pertinent History, Other Endocrine Medical History: No Pertinent History Musculoskeletal History: Other GI Medical History: Diverticulitis, GERD History: No Pertinent History Psycho-Social History: No Pertinent History Male Reproductive Disorders: No Pertinent History Other Medical History: CHRONIC LOWER BACK PAIN. BROKEN NOSE. fx ribs on TEJ SIDES - Past Surgical History Past Surgical History: Yes Neuro Surgical History: No Pertinent History Cardiac: CABG, Internal Defibrillator, Pacemaker, Other Respiratory: No Pertinent History Gastrointestinal: Appendectomy, Hemorrhoidectomy Genitourinary: No Pertinent History Musculoskeletal: No Pertinent History Male Surgical History: No Pertinent History Other Surgical History: open heart and pacemaker/ defib in jun 2017 - Social History Smoking Status: Current every day smoker How long have you smoked: 55 Exposure to second hand smoke: Yes Drug Use: none Patient Lives Alone: No - Nursing Vital Signs Nursing Vital Signs: Initial Vital Signs Temperature 98 F 09/28/17 14:48 Pulse Rate 70 09/28/17 14:48 Respiratory Rate 18 09/28/17 14:48 Blood Pressure 125/72 09/28/17 14:48 Pain Scale Pain Intensity 3 - Physical Exam General Appearance: no apparent distress, alert Eye Exam: PERRL/EOMI, eyes nml inspection Ears, Nose, Throat Exam: normal ENT inspection, moist mucous membranes Neck Exam: normal inspection, non-tender, supple, full range of motion Respiratory Exam: normal breath sounds, lungs clear, No respiratory distress Cardiovascular Exam: regular rate/rhythm, normal heart sounds Gastrointestinal/Abdomen Exam: soft, normal bowel sounds (NONTENDER), No tenderness, No mass Back Exam: normal inspection, No CVA tenderness, No vertebral tenderness Extremity Exam: normal inspection, normal range of motion Neurologic Exam: alert, oriented x 3, cooperative, normal mood/affect, sensation nml, No motor deficits Skin Exam: normal color, warm, dry SpO2 Interpretation: normal SpO2: 96 - Course EKG Interpreted by Me: RATE, Sinus Rhythm (RATE OF 71 VENTRICULAR PACED RHYTHM) - Radiology Exams Chest X-ray Interpretation: Discussed w/ radiologist (STABLE NONACUTE CHEST WITH CHRONIC FEATURES) Ordered Tests: Active Orders 24 hr Category Date Time Status Chemist Water Purification STAT Care 09/28/17 15:11 Active IV Insertion STAT Care 09/28/17 15:11 Active Oxygen-ED Only NASAL CANNULA 2 lpm Care 09/28/17 14:50 Active CHEST 1 VIEW (PORTABLE) Stat Exams 09/28/17 14:51 Completed AMYLASE Stat Lab 09/28/17 Completed CBC W DIFF Stat Lab 09/28/17 15:00 Results CMP Stat Lab 09/28/17 15:00 Completed LIPASE Stat Lab 09/28/17 Completed MAGNESIUM Stat Lab 09/28/17 15:00 Completed Manual Differential NC Stat Lab 09/28/17 15:00 Results PROTIME WITH INR Stat Lab 09/28/17 15:00 Completed Pathologist Review Stat Lab 09/28/17 15:00 Results TROPONIN Q3H Lab 09/28/17 15:00 Completed TROPONIN Q3H Lab 09/28/17 18:37 Received TROPONIN Q3H Lab 09/28/17 21:00 Ordered TROPONIN Q3H Lab 09/29/17 00:00 Ordered TROPONIN Q3H Lab 09/29/17 03:00 Ordered Medication Summary Generic Name Dose Route Start Last Admin Trade Name Freq PRN Reason Stop Dose Admin Sodium Chloride 1,000 mls @ 50 mls/hr 09/28/17 15:00 09/28/17 15:16 Sodium Chloride 0.9% 1000 Ml IV 10/28/17 14:59 50 mls/hr .Q20H BELL Administration Discontinued Medications Generic Name Dose Route Start Last Admin Trade Name Freq PRN Reason Stop Dose Admin Aspirin 243 mg 09/28/17 15:02 09/28/17 15:13 Baby Aspirin 81 Mg Chew PO 09/28/17 15:03 243 mg STAT ONE Administration Nitroglycerin 0.4 mg 09/28/17 15:05 09/28/17 15:13 Nitrostat 0.4 Mg (Ed) SL 09/28/17 15:06 0.4 mg STAT ONE Administration Nitroglycerin 1 gm 09/28/17 15:05 09/28/17 15:36 Nitro-Bid 2% Ud Packets TOP 09/28/17 15:06 Not Given STAT ONE Nitroglycerin Confirm 09/28/17 15:14 Nitro-Bid 2% Ud Packets Administered 09/28/17 15:15 Dose 1 gm .ROUTE .ST-MED ONE Lab/Rad Data: Laboratory Result Diagrams 09/28/17 15:00 09/28/17 15:00 Laboratory Results 09/28/17 09/28/17 09/28/17 Range/Units Unknown 15:00 15:00 WBC (4.0-10.5) K/mm3 RBC (4.1-5.6) M/mm3 Hgb (12.5-18.0) gm/dl Hct (42-50) % MCV (78-100) fl MCH (26-32) pg MCHC (32-36) g/dl RDW (11.5-14.0) % Plt Count (150-450) K/mm3 MPV (6-9.5) fl Segmented Neutrophils (36.-66.) % Lymphocytes (Manual) (24-44) % Monocytes (Manual) (0.0-12.0) % Eosinophils (Manual) (0.00-3.0) % Platelet Estimate (NORMAL) RBC Morphology Anisocytosis Smear Path Review PT (8.83-12.87) SECONDS INR (0.8-3.0) Sodium (137-145) mmol/L Potassium (3.5-5.1) mmol/L Chloride (98-107) mmol/L Carbon Dioxide (22-30) mmol/L Anion Gap (5-15) MEQ/L BUN (9-20) mg/dL Creatinine (0.66-1.25) mg/dL Estimated GFR ML/MIN Glucose (74-106) mg/dL Calcium (8.4-10.2) mg/dL Magnesium 2.0 (1.6-2.3) mg/dL Total Bilirubin (0.2-1.3) mg/dL AST (17-59) U/L ALT (0-50) U/L Alkaline Phosphatase (38-126) U/L Troponin I < 0.012 (0.000-0.034) ng/mL Serum Total Protein (6.3-8.2) g/dL Albumin (3.5-5.0) g/dL Amylase 58 (30-110) U/L Lipase 64 (23-300) U/L 09/28/17 09/28/17 09/28/17 Range/Units 15:00 15:00 15:00 WBC 17.9 H (4.0-10.5) K/mm3 RBC 4.74 (4.1-5.6) M/mm3 Hgb 12.0 L (12.5-18.0) gm/dl Hct 38.4 L (42-50) % MCV 81.0 (78-100) fl MCH 25.3 L (26-32) pg MCHC 31.3 L (32-36) g/dl RDW 19.5 H (11.5-14.0) % Plt Count 200 (150-450) K/mm3 MPV 9.4 (6-9.5) fl Segmented Neutrophils 23 L (36.-66.) % Lymphocytes (Manual) 72 H (24-44) % Monocytes (Manual) 3 (0.0-12.0) % Eosinophils (Manual) 2 (0.00-3.0) % Platelet Estimate NORMAL (NORMAL) RBC Morphology ABNORMAL Anisocytosis 1+ Smear Path Review Pending PT 15.9 H (8.83-12.87) SECONDS INR 1.36 (0.8-3.0) Sodium 138 (137-145) mmol/L Potassium 4.9 (3.5-5.1) mmol/L Chloride 103 (98-107) mmol/L Carbon Dioxide 22 (22-30) mmol/L Anion Gap 17.4 H (5-15) MEQ/L BUN 22 H (9-20) mg/dL Creatinine 1.08 (0.66-1.25) mg/dL Estimated GFR > 60.0 ML/MIN Glucose 118 H (74-106) mg/dL Calcium 9.3 (8.4-10.2) mg/dL Magnesium (1.6-2.3) mg/dL Total Bilirubin 0.40 (0.2-1.3) mg/dL AST 27 (17-59) U/L ALT 31 (0-50) U/L Alkaline Phosphatase 55 (38-126) U/L Troponin I (0.000-0.034) ng/mL Serum Total Protein 6.5 (6.3-8.2) g/dL Albumin 3.8 (3.5-5.0) g/dL Amylase (30-110) U/L Lipase (23-300) U/L - Progress Progress Note: 09/28/17 16:09 ADMINISTERED BABY ASA X 3, PATIENT REFUSED NITROPASTE AND NTG SL 09/28/17 16:34 Discussed with : Other (DISCUSSED WITH DR VILLASEÑOR AT 1610 ACCEPTS TRANSFER TO [facility]) - Departure Time of Disposition: 18:45 Departure Disposition: Transfer Clinical Impression: DEFIBRILLATOR FIRING, ACUTE CHEST PAIN Condition: Stable Critical Care Time: No Referrals: SHIMON GODDARD MD [Primary Care Provider] -
[2017-09-28] MEDS ORDERED: NITRO-BID 2% UD PACKETS TOP ONE (15:05)
[2017-09-28] MEDS ORDERED: Nitrostat 0.4 MG (ED) SL ONE (15:05)
--- NOTE | 2017-09-28 15:07 | XRAY ---
Indication: Dyspnea. Chest heaviness. Comparison: September 23 Portable chest again clear with previous CABG surgery and right-sided AICD with leads. Heart is not enlarged. Bony thorax again demonstrates osteopenia, degenerative changes, and old right rib fractures. No new/acute findings. Impression: Stable nonacute chest with chronic features.
[2017-09-28 15:09] LABS: Hematocrit 38.4 % (42-50); Mean Corpuscular Hemoglobin 25.3 pg (26-32); Mean Corpuscular Hgb Concent. 31.3 g/dl (32-36); Mean Platelet Volume 9.4 fl (6-9.5); Platelet Count 200 K/mm3 (150-450); Red Blood Count 4.74 M/mm3 (4.1-5.6); Red Cell Distribution Width 19.5 % (11.5-14.0); White Blood Count 17.9 K/mm3 (4.0-10.5)
[2017-09-28] MEDS ORDERED: NITRO-BID 2% UD PACKETS ONE (15:14)
[2017-09-28] MEDS ORDERED: Sodium Chloride 0.9% 1000 ML 1,000 ML ONE (15:14)
[2017-09-28 15:26] LABS: INR 1.36 (0.8-3.0)
[2017-09-28 15:31] VITALS: O2SAT 96
[2017-09-28 15:38] VITALS: BP 113/66; PULSE 70
[2017-09-28 15:44] LABS: AMYLASE 58 U/L (30-110); LIPASE 64 U/L (23-300)
[2017-09-28 15:45] LABS: ALBUMIN 3.8 g/dL (3.5-5.0); ALKALINE PHOSPHATASE 55 U/L (38-126); ANION GAP 17.4 MEQ/L (5-15); BLOOD UREA NITROGEN 22 mg/dL (9-20); CHLORIDE 103 mmol/L (98-107); Calcium 9.3 mg/dL (8.4-10.2); Carbon Dioxide 22 mmol/L (22-30); Creatinine 1 1.08 mg/dL (0.66-1.25); Glucose 118 mg/dL (74-106); Potassium 4.9 mmol/L (3.5-5.1); SGOT/AST 27 U/L (17-59); SGPT/ALT 31 U/L (0-50); SODIUM 138 mmol/L (137-145); Total Protein 6.5 g/dL (6.3-8.2)
[2017-09-28 16:45] LABS: Eosinophil 2 % (0.00-3.0); Lymphocytes 72 % (24-44); Monocyte 3 % (0.0-12.0); Neutrophils 23 % (36.-66.); Total Cells Counted 100
[2017-09-28 16:47] LABS: ANISOCYTOSIS 1+
[2017-09-28 16:48] LABS: Platelet Estimate NORMAL (NORMAL)
[2017-09-28] MEDS ORDERED: BABY ASPIRIN 81 MG CHEW ONE (22:43)
== END 2017-09-28 18:59 | disposition short-term general hospital (02) ==
LOC: ED 14:45
DX: R07.9 Chest pain, unspecified (principal); T82.897A Other specified complication of cardiac prosthetic devices, implants and grafts, initial encounter; Z95.810 Presence of automatic (implantable) cardiac defibrillator; R00.2 Palpitations; Z79.899 Other long term (current) drug therapy; I25.2 Old myocardial infarction; Z95.1 Presence of aortocoronary bypass graft; Z79.01 Long term (current) use of anticoagulants; I10 Essential (primary) hypertension
CPT/HCPCS: 36000; 36415; 71045; 80053; 82150; 83690; 83735; 84484; 85025; 85610; 93005; 93041; 96360; 96361; 99285; A9270-GY